=== PATIENT | female | born 1960 | race Caucasian/White ===

== ENCOUNTER 2018-01-27 12:41 | Outpatient (CLI) | payer OTHER ==
--- NOTE | 2018-02-02 15:42 | Mammography Report ---
DIGITAL SCREENING MAMMOGRAM: 01/27/2018 CLINICAL INDICATION: A 57-year-old for screening. COMPARISON: Films from [place], [place] dated 08/15/2009. TECHNIQUE: Routine CC and MLO projections were obtained of the breasts. FINDINGS: The breasts demonstrate scattered fibroglandular densities bilaterally. Coarse, typically benign calcifications are present. No suspicious masses, clustered microcalcifications, or regions of architectural distortion are identified. IMPRESSION: BENIGN FINDINGS. RECOMMENDATION: Routine annual screening unless otherwise clinically indicated. BIRADS CATEGORY 2 - BENIGN FINDINGS. STANDARD QUALIFYING STATEMENTS: 1. This examination was reviewed with the aid of Computer-Aided Detection (CAD). 2. A negative or benign imaging report should not delay biopsy if clinically suspicious findings are present. Consider surgical consultation if warranted. More than 5% of cancers are not identified by imaging. 3. Dense breasts may obscure an underlying neoplasm. TD: 02/02/2018 15:40
== END 2018-01-27 12:42 | disposition home or self-care (01) ==
LOC: DI 12:41
PROVIDERS: ATTEND Physician Assistant
DX: Z12.31 Encounter for screening mammogram for malignant neoplasm of breast (principal)
CPT/HCPCS: 77067

== ENCOUNTER 2019-01-23 19:14 | Inpatient (IN) | payer OTHER ==
--- NOTE | 2019-01-23 20:07 | ED Physician Documentation ---
PD HPI ABD PAIN - Stated complaint Stated Complaint: RT ABD PX/BLOATING - Chief complaint Chief Complaint: Abd Pain - History obtained from History obtained from: Patient, Family - History of Present Illness Timing - onset: How many days ago (3) Timing - duration: Days (3) Timing - details: Gradual onset, Still present Quality: Aching, Sharp, Pain Location: RUQ Radiation: Upper back Improved by: Laying still Worsened by: Moving, Breathing, Position, Palpation Associated symptoms: Nausea. No: Fever, Vomiting Similar symptoms before: Has not had sx before Recently seen: Not recently seen - Additional information Additional information: Previously well 58-year-old female with a history of celiac disease has developed bloating followed by right upper quadrant abdominal pain for the past 3 days. She has been afraid to eat and has not eaten and she is only drinking fluids. She has not had vomiting with this. She has had a bowel movement and this was normal. In 2009 the patient did have CT scan of the abdomen pelvis demonstrating what looks like a potential colon cancer in the distal cecum. She had follow-up colonoscopy. Review of Systems Constitutional: reports: Myalgias, Fatigue. denies: Fever Eyes: denies: Decreased vision Ears: denies: Ear pain Nose: denies: Rhinorrhea / runny nose, Congestion Throat: denies: Sore throat Cardiac: denies: Chest pain / pressure, Palpitations Respiratory: denies: Dyspnea, Cough GI: reports: Abdominal Pain, Abdominal Swelling, Nausea. denies: Vomiting, Constipation, Diarrhea : denies: Dysuria, Frequency Skin: denies: Rash Musculoskeletal: reports: Back pain. denies: Neck pain Neurologic: reports: Generalized weakness. denies: Focal weakness, Numbness PD PAST MEDICAL HISTORY - Present Medications Home Medications: Ambulatory Orders Medication Instructions Recorded Confirmed Oxycodone HCl/Acetaminophen 1 each PO BID 01/23/19 01/23/19 [Oxycodone-Acetaminophen 10-325] RX: Atorvastatin [Lipitor] 1 tab PO DAILY 01/23/19 01/23/19 RX: Metoprolol Succinate 50 mg PO DAILY 01/23/19 01/23/19 clonazePAM [Clonazepam] 1 mg PO BID 01/23/19 01/23/19 - Allergies Allergies/Adverse Reactions: Allergies Allergy/AdvReac Type Severity Reaction Status Date / Time acetaminophen [From Tylenol] Allergy Rash Verified 01/23/19 19:26 meperidine [From Demerol] Allergy Rash Verified 01/23/19 19:25 PD ED PE NORMAL - Vitals Vital signs reviewed: Yes (tachy and hypertensive) - General General: Alert and oriented X 3, Well developed/nourished, Other (parched mucous membranes causes some dysarthria. The patient moves slowly and appears ill. She requres assistance to sit up in bed. ) - HEENT HEENT: Atraumatic, PERRL, EOMI, Other (super dry mucous membranes .) - Neck Neck: Supple, no meningeal sign, No bony TTP - Cardiac Cardiac: No murmur, Other (tachy to 120) - Respiratory Respiratory: No respiratory distress, Clear bilaterally - Abdomen Abdomen: Soft, Other (RUQ tenderness with arrest of respiration with palpation of the RUQ. 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 ) Eye Opening: Spontaneous Motor: Obeys Commands Verbal: Oriented GCS Score: 15 - Psych Psych: Other (mood is withdrawn and affect is flat ) Results - Vitals Vitals: Vital Signs - 24 hr 01/23/19 01/23/19 01/23/19 19:22 21:47 21:56 Temperature 36.1 C L 36.4 C L 36.9 C Heart Rate 127 H 108 H 106 H Respiratory 20 16 18 Rate Blood Pressure 147/93 H 151/102 H 141/96 H O2 Saturation 96 94 95 01/23/19 01/24/19 01/24/19 23:12 00:07 02:08 Temperature 36.6 C 36.7 C Heart Rate 105 H 100 100 Respiratory 16 16 16 Rate Blood Pressure 129/87 H 128/82 H 137/82 H O2 Saturation 95 96 97 Oxygen O2 Source Nasal cannula - Labs Labs: Laboratory Tests 01/23/19 01/23/19 01/23/19 20:20 20:20 20:55 WBC 20.0 H RBC 5.93 H Hgb 15.8 Hct 48.1 H MCV 81.2 MCH 26.6 L MCHC 32.7 RDW 14.5 Plt Count 275 MPV 7.0 L Neut # (Auto) 16.8 H Lymph # (Auto) 1.4 L Mcintosh # (Auto) 1.7 H Eos # (Auto) 0.0 Baso # (Auto) 0.1 Absolute Nucleated RBC 0.03 Nucleated RBC % 0.1 Sodium 131 L Potassium 3.5 Chloride 95 L Carbon Dioxide 24 Anion Gap 12.0 BUN 17 Creatinine 0.6 Estimated GFR (MDRD) 102 Glucose 168 H Lactic Acid 1.9 Calcium 8.8 Total Bilirubin 0.8 AST 20 ALT 18 Alkaline Phosphatase 114 Total Protein 7.6 Albumin 3.6 Globulin 4.0 Albumin/Globulin Ratio 0.9 L Lipase 22 - Rads (name of study) u/s abd lmt Radiology: Prelim report reviewed (Impression: 1. Findings suggestive of acute cholecystitis. 2. Pancreas and liver are poorly visualized due to the patient's body habitus.), EMP read indepedently, See rad report Procedures - Bedside sono Bedside sono by EMP: Examination of the right upper quadrant with bedside ultrasound reveals a swollen tender gallbladder without obvious stone there is gallbladder wall thickening of 0.88 cm and there is fluid surrounding the gallbladder. Exam consistent with acute cholecystitis. - IVC sono (time) 2019 Bedside IVC sono: IVC measures (cm) (0.94), Dehydration (est 1 + liter deficit.) PD MEDICAL DECISION MAKING - ED course Complexity details: reviewed old records, reviewed results, re-evaluated yarely he, considered differential, d/w patient, d/w family ED course: 58-year-old female with right upper quadrant pain for 3 days has a swollen tender gallbladder with findings consistent with acute cholecystitis with an elevated white blood cell count and dehydration. She is administered intravenous saline, Zosyn, Toradol and Dilaudid. The surgeon is consulted shortly after patient's arrival. Departure - Departure Disposition: ED Place in Observation Clinical Impression: Cholecystitis
[2019-01-23] MEDS ORDERED: KETOROLAC 30 MG/ML VIAL IVP STA (20:18)
[2019-01-23] MEDS ORDERED: PIPERACILLIN/TAZOBACTAM 3.375 GM in SODIUM CHLORIDE 0.9% MINIBAG 100 ML IV STA (20:18)
[2019-01-23] MEDS ORDERED: ONDANSETRON 4 MG/2 ML VIAL IVP STA (20:18)
[2019-01-23] MEDS ORDERED: SODIUM CHLORIDE 0.9% 1,000 ML IV ONE ×2 (20:18→23:36)
[2019-01-23 20:51] LABS: ALBUMIN 3.6 g/dL (3.2-5.5); ALBUMIN/GLOBULIN RATIO 0.9 (1.0-2.2); BILIRUBIN,TOTAL 0.8 mg/dL (0.2-1.0); CALCIUM 8.8 mg/dL (8.5-10.3); CREATININE 0.6 mg/dL (0.4-1.0); TOTAL PROTEIN 7.6 g/dL (6.7-8.2)
[2019-01-23 21:03] LABS: BASOPHILS # (AUTO) 0.1 10^3/uL (0.0-0.1); BASOPHILS % (AUTO) 0.4 %; HGB - HEMOGLOBIN 15.8 g/dL (12.0-16.0); LYMPHOCYTES # (AUTO) 1.4 10^3/uL (1.5-3.5); LYMPHOCYTES % (AUTO) 6.9 %; MEAN CORPUSCULAR HEMOGLOBIN 26.6 pg (27.0-31.0); MEAN CORPUSCULAR HGB CONC 32.7 g/dL (32.0-36.0); MEAN CORPUSCULAR VOLUME 81.2 fL (81.0-99.0); MONOCYTES # (AUTO) 1.7 10^3/uL (0.0-1.0); MONOCYTES % (AUTO) 8.5 %; NEUTROPHILS # (AUTO) 16.8 10^3/uL (1.5-6.6); NEUTROPHILS % (AUTO) 84.2 %; PLT - PLATELET COUNT 275 10^3/uL (130-450); RED BLOOD COUNT 5.93 10^6/uL (4.20-5.40); RED CELL DISTRIBUTION WIDTH 14.5 % (12.0-15.0)
--- NOTE | 2019-01-23 22:11 | Ultrasound Report ---
Reason: RUQ pain Procedure Date: 01/23/2019 Accession Number: [id number] / [id number] Procedure: US - Abdomen Limited CPT Code: FULL RESULT: EXAM: ABDOMEN ULTRASOUND LIMITED, RIGHT UPPER QUADRANT. EXAM DATE: 01/23/2019 09:53 PM. CLINICAL HISTORY: Right upper quadrant pain. COMPARISON: None. TECHNIQUE: Real-time scanning was performed with static images obtained. FINDINGS: Skin is of limited quality due to the patient's body habitus. Liver: Normal in size and echotexture. 17.1 cm. Main portal vein flow: Hepatopetal. Gallbladder: There are multiple small calculi in the gallbladder, which also contains sludge. Calculi are predominantly adjacent to the neck and do not appear mobile. The gallbladder wall appears hypoechogenic and measures 6.3 mm. Biliary System: CBD measures 5.4 mm. The CBD is only partially visualized. Other: Right kidney: 12.4 cm. No significant abnormality. IMPRESSION: 1. Findings suggestive of acute cholecystitis. 2. Pancreas and liver are poorly visualized due to the patient's body habitus. RADIA
[2019-01-23] MEDS ORDERED: HYDROmorphone 1 MG/ML CARPUJECT IVP STA (22:12)
--- NOTE | 2019-01-23 23:15 | CONSULTATION NOTE ---
Referring Provider Name of Referring Provider:: Dr. Ezequiel De Leon Consult Date: 01/23/19 Chief Complaint - Chief Complaint Chief Complaint: RUQ abdominal pain History of Present Illness - Admitted From Admitted From:: Outpatient - History Obtained From Records Reviewed: Yes History obtained from: Patient, chart and Dr. De Leon Exam Limitations: None - History of Present Illness HPI Comment/Other: Dr. Ezequiel De Leon asked that I consult on this veyr pleasant 58 year old female who started experiencing postprandial RUQ pain starting . The pain is d escribed as sharp and located in the RUQ quadrant. She stuck her finger down her throat to "get rid of the gas" but there was no nausea and no vomiting. Lying down she feels less pain but motion and standing exacerbates her pain. There is no diarrhea or constipation. She denies melena, hematochezia or hematemesis. There has been no unexpected weight loss. History - Past Medical History Cardiovascular: reports: Hypertension, High cholesterol MRSA Hx?: No Meds/Allgy - Home Medications Home Medications: Ambulatory Orders Medication Instructions Recorded Confirmed Atorvastatin [Lipitor] 1 tab PO DAILY 01/23/19 01/23/19 Metoprolol Succinate 50 mg PO DAILY 01/23/19 01/23/19 Oxycodone HCl/Acetaminophen 1 each PO BID 01/23/19 01/23/19 [Oxycodone-Acetaminophen 10-325] clonazePAM [Clonazepam] 1 mg PO BID 01/23/19 01/23/19 - Allergies Allergies/Adverse Reactions: Allergies Allergy/AdvReac Type Severity Reaction Status Date / Time acetaminophen [From Tylenol] Allergy Rash Verified 01/23/19 19:26 meperidine [From Demerol] Allergy Rash Verified 01/23/19 19:25 Review of Systems - Constitutional Constitutional: reports: Fatigue. denies: Fever, Chills - Eyes Eyes: denies: Pain - Ears, Nose & Throat Ears, Nose & Throat: denies: Ear pain - Cardiovascular Cariovascular: denies: Irregular heart rate - Respiratory Respiratory: denies: Cough, Sputum production - Gastrointestinal Gastrointestinal: reports: Abdominal pain (Patient has been told that she has IBS and celiac disease (but upon my questioning it is unclear if the proper testing was done).), Poor appetite. denies: Constipation, Diarrhea, Rectal bleeding, Black stools, Bloody stools, Nausea, Vomiting - Genitourinary Genitourinary: denies: Dysuria - Musculoskeletal Musculoskeletal: reports: Muscle pain (Chronic.), Back pain (Chronic.) - Neurological Neurological: reports: General weakness (Walks with the aid of a cane.) - Hematologic/Lymphatic Hematologic/Lymphatic: denies: Anemia, Bruising Exam - Vital Signs Reviewed Vital Signs: Yes Vital Signs: Vital Signs x48h Temp Pulse Resp BP Pulse Ox 01/23/19 23:12 105 H 16 129/87 H 95 01/23/19 21:56 36.9 C 106 H 18 141/96 H 95 01/23/19 21:47 36.4 C L 108 H 16 151/102 H 94 01/23/19 19:22 36.1 C L 127 H 20 147/93 H 96 - Physical Exam General Appearance: positive: No acute distress Eyes Bilateral: positive: No lid inflammation, Conjunctivae nml, No scleral icterus ENT: positive: Dry mucous membranes Neck: positive: Trachea midline Respiratory: positive: Chest non-tender, No respiratory distress, Breath sounds nml Cardiovascular: positive: No murmur, Tachycardia Abdomen: positive: Nml bowel sounds, Tenderness (In the right upper quadrant.), Guarding (RUQ) Skin: positive: Color nml Extremities: positive: Non-tender Neurologic/Psychiatric: positive: Oriented x3, Motor nml, Sensation nml, Mood/affect nml Conclusion/Plan - Diagnosis Diagnosis: Acute cholecystitis - Plan Plan: Laparoscopic cholecystectomy, possible open cholecystectomy, possible intraoperative cholangiogran, possible common bile duct exploration. The indications, procedure, alternatives including no surgery, ingestion of Actigall, possible risks including infection (deep or superficial), bleeding requiring transfusion (with all of its risks), common bile duct injury requring repair and additional surgery, and were fully explained to the patient and all questions answered. I also explained the pathophysiology. I explained that following the surgery I did not want her lifting anything over 15 pounds for 6 weeks to allow for optimal healing and to decrease the likelihood that a hernia would occur. All questions were fully answered. Verbal and written consent was obtained. The patient, in preparation for surgery will be nothing by mouth, and receive 2 gm of Cephalexin with induction. I asked her to contact me with any surgical questions and her concerns and she stated that she would. I asked her to let me know if there is any way we can make her stay at [facility] more comfortable and she stated that she would let me know. The plan is to do this operation as an outpatient procedure and to discharge her home following the procedure. 45 minutes of [id number] time spent with the patient, the majority of which was spent in discussion, coordination of care, and completion of the requisite paperwork Dragon disclaimer: This document was created in part using voice recognition technology. Because of the inherent limitations of the system ([employer]'s [employer] user manual states that the licensee understands that speech recognition is a statistical process and that recognition errors are inherent in the process), occasional same sounding word substitutions and grammatical errors do occur and persist despite proofreading. Please read this document for context. - Lab Results Lab results reviewed: Yes Fish Bones: 01/23/19 20:55 01/23/19 20:20 - Diagnostic Imaging Results Diagnostic Imaging Results: positive: Final report reviewed
[2019-01-24] MEDS ORDERED: HYDROmorphone 1 MG/ML CARPUJECT IVP STA ×3 (04:04→09:37)
[2019-01-24] MEDS ORDERED: ONDANSETRON 4 MG/2 ML VIAL IVP STA (04:04)
[2019-01-24 04:36] LABS: BILIRUBIN,URINE NEGATIVE (NEGATIVE); GLUCOSE, URINE (UA) NEGATIVE (NEGATIVE); KETONES,URINE (UA) NEGATIVE (NEGATIVE); LEUKOCYTE ESTERASE, URINE TRACE (NEGATIVE); NITRITE,URINE NEGATIVE (NEGATIVE); OCCULT BLOOD,URINE LARGE (NEGATIVE); PROTEIN,URINE TRACE mg/dL (NEGATIVE); UROBILINOGEN,URINE 0.2 (NORMAL) E.U./dL (NORMAL)
[2019-01-24 04:45] LABS: CLARITY,URINE CLEAR (CLEAR)
[2019-01-24 04:46] LABS: BACTERIA,URINE Few /HPF (None Seen); SQUAMOUS EPITHELIAL CELL,UR FEW Squamous (<= Few)
[2019-01-24] MEDS ORDERED: KETOROLAC 30 MG/ML VIAL IVP STA (05:02)
[2019-01-24] MEDS ORDERED: HYDROmorphone 1 MG/ML CARPUJECT ONE (06:30)
[2019-01-24] MEDS ORDERED: BUPIVACAINE 0.5% PF 30 ML VIAL ONE (07:23)
--- NOTE | 2019-01-24 09:55 | ANESTHESIA ---
Pre-Anesthesia VS, & Labs - Diagnosis Diagnosis Acute cholecystitis - Procedure laparoscopic cholecystectomy, possible open, possible intraoperative cholangiogram Vital Signs: Temp Pulse Resp BP Pulse Ox 36.7 C 117 H 18 139/81 H 95 01/24/19 02:08 01/24/19 09:37 01/24/19 09:37 01/24/19 09:37 01/24/19 09:37 Height 5 ft 5 in Weight (kg) 75.75 kg Body Mass Index 27.8 - NPO >8 hours - Is Patient ?: No - Lab Results Current Lab Results: Laboratory Tests 01/23/19 20:55: WBC 20.0 H, RBC 5.93 H, Hgb 15.8, Hct 48.1 H, MCV 81.2, MCH 26.6 L, MCHC 32.7, RDW 14.5, Plt Count 275, MPV 7.0 L, Neut # (Auto) 16.8 H, Lymph # (Auto) 1.4 L, Slope # (Auto) 1.7 H, Eos # (Auto) 0.0, Baso # (Auto) 0.1, Absolute Nucleated RBC 0.03, Nucleated RBC % 0.1 01/23/19 20:20: Lactic Acid 1.9 01/23/19 20:20: Sodium 131 L, Potassium 3.5, Chloride 95 L, Carbon Dioxide 24, Anion Gap 12.0, BUN 17, Creatinine 0.6, Estimated GFR (MDRD) 102, Glucose 168 H, Calcium 8.8, Total Bilirubin 0.8, AST 20, ALT 18, Alkaline Phosphatase 114, Total Protein 7.6, Albumin 3.6, Globulin 4.0, Albumin/Globulin Ratio 0.9 L, Lipase 22 Fish Bones: 01/23/19 20:55 01/23/19 20:20 Home Medications and Allergies Home Medications: Ambulatory Orders Atorvastatin [Lipitor] 1 tab PO DAILY 01/23/19 Metoprolol Succinate 50 mg PO DAILY 01/23/19 Oxycodone HCl/Acetaminophen [Oxycodone-Acetaminophen 10-325] 1 each PO BID 01/23/19 clonazePAM [Clonazepam] 1 mg PO BID 01/23/19 Atorvastatin [Lipitor] 1 tab PO DAILY 01/23/19 Metoprolol Succinate 50 mg PO DAILY 01/23/19 Oxycodone HCl/Acetaminophen [Oxycodone-Acetaminophen 10-325] 1 each PO BID 01/23/19 clonazePAM [Clonazepam] 1 mg PO BID 01/23/19 Allergies/Adverse Reactions: Allergies Allergy/AdvReac Type Severity Reaction Status Date / Time acetaminophen [From Tylenol] Allergy Rash Verified 01/23/19 19:26 meperidine [From Demerol] Allergy Rash Verified 01/23/19 19:25 Anes History & Medical History - Anesthetic History Anesthesia Complications: reports: No previous complications - Medical History Cardiovascular: reports: Hypertension, High cholesterol Pulmonary: reports: None Gastrointestinal: reports: Cholelithiasis Urinary: reports: Kidney stones Neuro: reports: Head injury (history of), Migraines Musculoskeletal: reports: Osteoarthritis, Fibromyalgia, Chronic back pain Smoking Status: Current every day smoker Exam General: Alert, Oriented x3 Mouth Opening: Greater than 4 Fingerbreadths Neck Mobility: Limited Mallampati classification: III Thyromental Distance: greater than 6 cm Respiratory: Lungs clear Cardiovascular: Regular rate Plan Anesthesia Type: General Consent for Procedure(s) Verified and Reviewed: Yes Code Status: Attempt Resuscitation ASA classification: 2-Mild systemic disease Is this case an emergency?: Yes
[2019-01-24] MEDS ORDERED: BUPIVACAINE 0.5% PF 30 ML VIAL SUBQ ONE ×2 (10:44→12:57)
--- NOTE | 2019-01-24 10:46 | MISCELLANEOUS PROVIDER NOTE ---
Miscellaneous Provider Note - - Note: This very pleasant 4-year-old female was seen last night in the emergency department for acute cholecystitis and she spent the night in the emergency department with the anticipation that she would be operated on today. From the time that she was seen in the emergency department until now the only difference is been that she has been moved from room 4 to room 7, given some blankets, 1 dose of Dilaudid, and allowed to sleep. Subjectively she states that she still has the pain but it is better than it was previously. Objectively she is still mildly tachycardic, her lungs sound clear, she had still has pain on palpation in the right upper quadrant with normal active bowel sounds and no peritoneal findings. The assessment and plan have not changed. She is scheduled to have a laparoscopic cholecystectomy, possible open cholecystectomy, possible intraoperative cholangiogram, possible common bile duct exploration this morning. The patient has no additional questions. She has not developed any new symptoms. There are no new medications or allergies that she has tam mbered. Davidon disclaimer: This document was created in part using voice recognition technology. Because of the inherent limitations of the system ([employer] user manual states that the licensee understands that speech recognition is a statistical process and that recognition errors are inherent in the process), occasional same sounding word substitutions and grammatical errors do occur and persist despite proofreading. Please read this document for context.
[2019-01-24] MEDS ORDERED: LACTATED RINGERS 1,000 ML IV ONE ×3 (11:09→12:37)
[2019-01-24] MEDS ORDERED: NITROGLYCERIN 2% PASTE TOP ONE (12:38)
[2019-01-24] MEDS ORDERED: ROCURONIUM 50 MG/5 ML VIAL IVP ONE (13:00)
[2019-01-24] MEDS ORDERED: DEXAMETHASONE 4 MG/ML VIAL IVP ONE (13:00)
[2019-01-24] MEDS ORDERED: ONDANSETRON 4 MG/2 ML VIAL IVP ONE (13:00)
[2019-01-24] MEDS ORDERED: MIDAZOLAM 2 MG/2 ML VIAL IVP ONE (13:00)
[2019-01-24] MEDS ORDERED: fentaNYL 100 MCG/2 ML VIAL IVP ONE (13:00)
[2019-01-24] MEDS ORDERED: NEOSTIGMINE 1 MG/1 ML 10 ML MDV IVP ONE (13:00)
[2019-01-24] MEDS ORDERED: LIDOCAINE-MPF 2% 5 ML VIAL IM ONE (13:00)
[2019-01-24] MEDS ORDERED: GLYCOPYRROLATE 1 MG/5 ML VIAL IVP ONE (13:00)
[2019-01-24] MEDS ORDERED: MORPHINE 10 MG/ML VIAL IVP ONE (13:00)
[2019-01-24] MEDS ORDERED: PROPOFOL 200 MG/20 ML VIAL IVP ONE (13:00)
--- NOTE | 2019-01-24 13:15 | OPERATIVE REPORT ---
Operative Report - General Admit Date: 01/24/19 Planned Procedure: Laparoscopic cholecystectomy, possible open cholecystectomy, possible intraoperative cholangiogram, possible common bile duct exploration Pre-Op Diagnosis: Acute cholecystitis Procedure Performed: Laparoscopic cholecystectomy, umbilical herniorrhaphy Modifier 22 should be appended Post Op Diagnosis: Gangrenous cholecystitis and small umbilical hernia - Procedure Note Primary Surgeon: Ezequiel Pederson MD Anesthesia Provider: Dutch Vasquez CRNA Anesthesia Technique: General ET tube, Local (30 mL of half percent Marcaine) IV Fluids (mL): 2,200 Estimated Blood Loss (mL): 400 Drain/Tube Type: Other (None.) Complications: The patient did have some cardiac changes during the operation including ST depression as well as loss of the P wave. This resolved at the conclusion of the operation. - Other Other Information/Narrative: OPERATIVE DESCRIPTION/REPORT: After verbal and written informed consent was obtained detailing the risks of infection, bleeding requiring transfusion with its risks, common bile duct injury, and , and after I met with the patient confirming the surgery, the patient was brought to the operative suite and placed supine on the operating table. Great care was taken to avoid pressure points to prevent pressure necrosis or nerve injury. Monitoring devices were applied along with TEDs and pneumatic compressive stockings (to prevent DVT). The patient received preoperative antibiotics for surgical prophylaxis. Dutch Vasquez CRNA sedated and anethetized the patient for the entire procedure. The patient was prepped and draped in the usual sterile manner. A "time in" then confirmed that the patient was identified with 3 identifiers (name, date and medical record number), the history and physical was in the chart, the signed consent confirming the procedure was in the chart, the patient was in the correct position, the aforementioned prophylactic measures were in place or given, we had the correct personnel and equipment to complete the procedure and that anesthesia, surgery and nursing were given an opportunity to express any concerns. With the agreement of everyone in the room, we proceeded with the operation. The initial incision was at the umbilicus and dissection to a small umbilical hernia was completed using blunt dissection. The fascia on either side was grasped with a Héctor the peritoneum was grasped and incised using Metzenbaum scissors. In this location, a 12 mm blunt tipped, balloon tipped port was placed and the balloon was inflated to keep the port in position. The abdominal cavity was insufflated with carbon dioxide to steady-state pressure of 15 mmHg. Three additional 5 mm ports were placed in standard location for laparoscopic cholecystectomy (subxiphoid and 2 right subcostal) under direct vision of the 30 degree laparoscope and without incident. The patient was then placed in reverse Trendelenburg position and was rotated slightly to their left. Immediately noted was fluid that was dark in color above the liver as well the omentum densely adherent to the underside of the liver. The omentum was pulled up off the underside of the liver and gallbladder. The reaction of the omentum was that of a dense inflammatory reaction. The gallbladder itself was friable and the wall was necrotic consistent with gangrenous cholecystitis. The gallbladder was tense and the wall was necrotic so there was no way that I would be able to grasp this gallbladder without decompressing it first. The gallbladder was decompressed using a laparoscopic needle and 60 cc syringe. 180 cc of dark bile was removed. Even with the removal resulting in a flaccid gallbladder it was difficult to grasp the wall due to the thick necrotic nature of the wall. Along the right side of the gallbladder an omental attachment was taken down and a small arterial bleeder was exposed. This was difficult to control due to its location in the fat as well as the fact that the bleeding was pointed at the scope and occluding the vision of the scope. Eventually clips controlled this omental bleeder, but not before there was significant blood loss. The gallbladder fundus was grasped with an atraumatic grasper. Additional adhesions had to be taken down by blunt and sharp dissection along with electrocautery. Eventually, we identified the infundibulum, and this was then grasped and retracted inferior and laterally. Again, this was exceedingly difficult due to the necrotic nature of the gallbladder wall. Dissection planes were not readily visible. Dissection was then begun in the angle of Calot. The cystic duct and (slightly medially and posteriorly) cystic artery were identified. The critical view was obtained. Two clips proximally and one clip distally were used to control both the cystic duct and cystic artery. The clips were carefully placed to avoid occluding the juncture with the common bile duct. Both the cystic duct and then the cystic artery were then transected with laparoscopic alexandra. The gallbladder was then removed from its fossa in a retrograde fashion using electrocautery. Retraction of the gallbladder resulted more evulsion of the gallbladder from the liver bed rather than dissection in any clearly identifiable plane. Prior to complete removal of the gallbladder from the liver bed the liver bed was cauterized using Bovie electrocautery with hemostasis the result. With the 30 degree 5 mm scope in the subxiphoid position, the gallbladder was placed in an EndoCatch bag to be extracted through the 12 mm port site. I irrigated the right upper quadrant with 3 liters of warm sterile saline, and the area was aspirated dry. I inspected the gallbladder fossa and there was no bleeding or bile leak. Clips on the cystic duct and cystic artery appeared to be secure. I briefly visually explored the abdomen. There was no other evidence of overt pathology. I injected the port sites at the peritoneal, fascial, and skin levels under direct vision with 0.5% Marcaine. All ports and the EndoCatch containing the gallbladder were removed. Following gallbladder removal, the remaining carbon dioxide was expelled from the abdomen. The fascia at the umbilicus was reapproximated using 2 [id number] 0 Vicryl sutures thus repairing the umbilical hernia. The skin at each port site was approximated using a subcuticular 4-0 Monocryl. The surgical count of instruments, needles and sponges was reported as correct twice. Mastisol, Steri-Strips and sterile surgical dressings were applied. The patient was then awakened from anesthesia, extubated, and having tolerated the procedure well, was transported to the recovery room. No complications were encountered. A "time out" confirmed the operation performed, the fluids given, the estimated blood loss and anesthesia, surgery and nursing were given an opportunity to express any concerns. At the completion of the case an ECG was obtained and is made aware that there were changes to the ECG that were not present preoperatively. Due to these concerns as well as the operative findings and the operative course the patient was placed in the intensive care unit prophylactically. Due to the complexity of the case, the gangrenous nature of the gallbladder, the blood loss, the ECG changes and the length of the case a modifier 22 should be appended. Dragon disclaimer: This document was created in part using voice recognition technology. Because of the inherent limitations of the system ([employer] user manual states that the licensee understands that speech recognition is a statistical process and that recognition errors are inherent in the process), occasional same sounding word substitutions and grammatical errors do occur and persist despite proofreading. Please read this document for context.
[2019-01-24] MEDS ORDERED: SODIUM CHLORIDE FLUSH 0.9% 10 ML SYRINGE IVP PRN (13:18)
[2019-01-24] MEDS ORDERED: ONDANSETRON 4 MG/2 ML VIAL IVP PRN (13:18)
[2019-01-24] MEDS ORDERED: HYDROmorphone 0.5 MG/0.5 ML SYRINGE ONE (13:44)
[2019-01-24] MEDS ORDERED: NITROGLYCERIN 2% PASTE TOP STA (13:59)
[2019-01-24 14:16] LABS: BASOPHILS # (AUTO) 0.1 10^3/uL (0.0-0.1); BASOPHILS % (AUTO) 0.4 %; HGB - HEMOGLOBIN 13.3 g/dL (12.0-16.0); LYMPHOCYTES # (AUTO) 0.7 10^3/uL (1.5-3.5); LYMPHOCYTES % (AUTO) 4.5 %; MEAN CORPUSCULAR HEMOGLOBIN 26.4 pg (27.0-31.0); MEAN CORPUSCULAR HGB CONC 32.3 g/dL (32.0-36.0); MEAN CORPUSCULAR VOLUME 81.6 fL (81.0-99.0); MONOCYTES # (AUTO) 1.2 10^3/uL (0.0-1.0); MONOCYTES % (AUTO) 7.3 %; NEUTROPHILS # (AUTO) 13.9 10^3/uL (1.5-6.6); NEUTROPHILS % (AUTO) 87.8 %; PLT - PLATELET COUNT 250 10^3/uL (130-450); RED BLOOD COUNT 5.06 10^6/uL (4.20-5.40); RED CELL DISTRIBUTION WIDTH 14.3 % (12.0-15.0); WHITE BLOOD COUNT 15.9 x10^3/uL (4.8-10.8)
[2019-01-24 14:27] LABS: ALBUMIN 2.5 g/dL (3.2-5.5); ALBUMIN/GLOBULIN RATIO 0.9 (1.0-2.2); BILIRUBIN,TOTAL 1.3 mg/dL (0.2-1.0); CALCIUM 7.7 mg/dL (8.5-10.3); CREATININE 0.6 mg/dL (0.4-1.0); TOTAL PROTEIN 5.3 g/dL (6.7-8.2)
--- NOTE | 2019-01-24 14:42 | MISCELLANEOUS PROVIDER NOTE ---
Miscellaneous Provider Note - - Note: This note is to serve as a review of the patient's care up to this point. The patient is immediately postoperative following a laparoscopic cholecystectomy for gangrenous cholecystitis and an incidental umbilical herniorrhaphy. Due to the gangrenous nature of the gallbladder and needed to be decompressed and the wall of the gallbladder was clearly necrotic. Dissection of this necrotic and densely adherent gallbladder resulted in blood loss which was controlled. During the operation on the rhythm strip the patient showed changes in her cardiac rhythm and tracing. This resolved by the end of the case but prudence led us to obtain a an EKG which showed some persistent changes from preoperatively. As a result I consulted Dr. Mack, ordered troponins, ordered a chest x-ray, order an echocardiogram and placed 1 inch of Nitropaste on the patient's chest as well as gave the patient morphine. Additionally, I was informed that the patient's blood cultures came back positive for gram- positive cocci. Due to the patient's gangrenous gallbladder, elevated white blood cell count, and positive blood cultures this mandates at least 3 days of IV antibiotics and possibly a longer oral course. Additionally, she will be followed to ensure that she does not have any ongoing blood loss. As a consequence of all the above prudence dictates a postoperative admission to the intensive care unit.
[2019-01-24] MEDS: DEXTROSE 5%-0.9% NACL 1,000 ML IV SCH (14:49)
[2019-01-24] MEDS: HYDROmorphone 0.5 MG/0.5 ML SYRINGE IVP PRN ×4 (15:14→23:09)
[2019-01-24] MEDS: PIPERACILLIN/TAZOBACTAM 3.375 GM in SODIUM CHLORIDE 0.9% MINIBAG 100 ML IV SCH ×2 (15:18→19:52)
--- NOTE | 2019-01-24 15:23 | XRAY Report ---
Reason: chest pain Procedure Date: 01/24/2019 Accession Number: [id number] / [id number] Procedure: XR - Chest 1 View X-Ray CPT Code: 99612 FULL RESULT: EXAM: CHEST RADIOGRAPHY, PORTABLE 1 VIEW EXAM DATE: 01/24/2019 02:44 PM. CLINICAL HISTORY: Chest pain in a 58-year-old female. COMPARISON: XR RIBS UNILAT W/ PA CHEST MIN 3 VIEWS 09/11/2010 5:44 AM. TECHNIQUE: 1429 hr AP semierect upright portable view. FINDINGS: Lungs/Pleura: Poor inspiratory effort. Patchy atelectasis left mid to lower lung. No definite infiltrates, effusions or pneumothorax bilaterally. Mediastinum: Heart size normal, without adenopathy or pulmonary vascular congestion. Other: Trachea is midline. Old healed fracture right mid clavicle with mild deformity, chronic and stable. Osseous structures otherwise unremarkable. IMPRESSION: Stable chest. No pneumonia, CHF or other demonstrated cause for chest pain. RADIA
[2019-01-24] MEDS: SODIUM CHLORIDE FLUSH 0.9% 10 ML SYRINGE IVP SCH (18:51)
[2019-01-24] MEDS ORDERED: SODIUM CHLORIDE 0.9% 500 ML IV ONE (19:30)
--- NOTE | 2019-01-24 20:23 | CONSULTATION NOTE ---
DATE OF SERVICE: 01/24/2019 Physician: Eva Mack MD HISTORY OF PRESENT ILLNESS: This is a 58-year-old white female with history of hypertension and palpitations for which she is on Metoprolol. She also has a history of chronic pain and is on a pain management protocol. She presented with a 2-day history of worsening right upper quadrant pain and then nausea and vomiting. She came to the emergency room yesterday and was found to have acute cholecystitis with elevated white count of 20. Imaging showed acute cholecystitis without stones. This morning, she was taken to the operating room for laparoscopic cholecystectomy. Dr. Ezequiel Pederson did the surgery and states that he found a gangrenous, black gallbladder, and there was a significant amount of blood loss of 400 mL during the procedure. During the procedure, the Anesthesiologist noted that her rhythm had changed and that there may have been new ST segment changes on telemetry. In the recovery room, she had a 12-lead EKG done, which showed an ectopic atrial rhythm and therefore the Hospitalist team is requested for consulting on the EKG abnormality. The patient denies to me any other past cardiac history besides HTN and palpitations. She did say that she has been short of breath for several days just prior to this admission, and this has had no workup. She denies chest pain ever. She has never had syncope. She has not had any cardiac work-up. ALLERGIES: TYLENOL AND MEPERIDINE. MEDICATIONS: Before this admission: 1. Clonazepam 1 mg p.o. b.i.d. 2. Tylenol with codeine, despite hsving a "Tylenol allergy". 3. Metoprolol succinate 50 mg daily. 4. Lipitor, unknown dose daily. 5. Unknown pain medications. SOCIAL HISTORY: The patient is a nonsmoker, who never smoked, drinks no alcohol, no illicit drug use history. FAMILY HISTORY: No inherited diseases. REVIEW OF SYSTEMS: A comprehensive review of system was performed and the pertinent positives are listed, the rest are negative. PHYSICAL EXAMINATION GENERAL: Middle-aged white female, mildly obese. She is not in distress after getting pain medications postop. VITAL SIGNS: Blood pressure 124/80, heart rate 110, in sinus rhythm now. Telemetry was reviewed, and she converted from ectopic atrial rhythm to a normal sinus rhythm at approximately 6 p.m. HEENT: Unremarkable. NECK: Without JVD or carotid bruits. LUNGS: Clear. HEART: Sounds normal. No murmur. No click. No gallop. ABDOMEN: Soft, mildly distended, nontender. Decreased bowel sounds. EXTREMITIES: No clubbing, cyanosis or edema. NEUROLOGIC: Grossly intact. LABORATORY DATA: Sodium 131 on admission yesterday, today 134. Otherwise, normal electrolytes. AST was 20, which increased to 68. ALT was 18, which increased to 52. Alkaline phosphatase was 114, which increased to 163. A troponin was done in the recovery room, which was 0.04. Lipase was normal on admission. White blood count 20 on admission, which decreased to 15.9, hemoglobin 15.8, decreased to 13.3, platelet count normal. No INR was done. Urinalysis showed large occult blood, trace leukocyte esterase, high white blood cells and few bacteria. Her blood culture just reported to be positive and is growing gram positive cocci. EKG: Ectopic atrial rhythm, borderline (0.5 mm) ST elevation in leads II, III and aVF. IMPRESSION/DIAGNOSES 1. Ectopic atrial rhythm, etiology is unclear, but may be related to the beta leo use or to an underlying dysrhythmia related to her "palpitation history." 2. Acute cholecystitis with a gangrenous gallbladder. 3. Gram-positive bacteremia. 4. Urinary tract infection. 5. History of back pain, on chronic pain meds. 6. History of hypertension. PLAN 1. Agree with ICU admission due to cardiac rhythm change and abnormal EKG. 2. Agree with broad-spectrum antibiotics to cover both GI organisms, UTI organisms and now the gram-positive bacteria that are growing from blood cultures. 3. Continue with advancing the diet and pain management per the surgeon. 4. Obtain troponin levels x3 every 6 hours. 5. Obtain EKG in the morning to look for any ischemic changes. 6. Obtain an Echo to evaluate for resting wall motion abnormalities, chamber sizes and PA pressure. 7. Obtain a TSH level to rule out hyper or hypothyroidism as the cause of this rhythm problem as well. 8. Check a magnesium level. 9. Continue with telemetry. 10. Obtain a chest XRay. DEEP VENOUS THROMBOSIS PROPHYLAXIS: DILCIA stockings (SCDs were tried, but are annoying to the patient because of the "constant movement"). CODE STATUS: FULL CODE. ATTESTATION: The patient is expected to be discharged or transferred to another facility within 96 hours: Yes. TD: 01/24/2019 19:40 JOSE ARMANDO
[2019-01-25] MEDS: SODIUM CHLORIDE FLUSH 0.9% 10 ML SYRINGE IVP SCH ×4 (01:31→23:43)
[2019-01-25] MEDS: HYDROmorphone 0.5 MG/0.5 ML SYRINGE IVP PRN ×6 (01:34→18:57)
[2019-01-25] MEDS: DEXTROSE 5%-0.9% NACL 1,000 ML IV SCH ×2 (01:34→12:34)
[2019-01-25] MEDS: PIPERACILLIN/TAZOBACTAM 3.375 GM in SODIUM CHLORIDE 0.9% MINIBAG 100 ML IV SCH ×4 (01:34→20:18)
[2019-01-25 05:05] LABS: BASOPHILS % (AUTO) 0.2 %; HGB - HEMOGLOBIN 11.6 g/dL (12.0-16.0); LYMPHOCYTES # (AUTO) 0.9 10^3/uL (1.5-3.5); LYMPHOCYTES % (AUTO) 6.3 %; MEAN CORPUSCULAR HEMOGLOBIN 26.9 pg (27.0-31.0); MEAN CORPUSCULAR HGB CONC 32.9 g/dL (32.0-36.0); MEAN CORPUSCULAR VOLUME 81.8 fL (81.0-99.0); MEAN PLATELET VOLUME 7.1 fL (7.9-10.8); MONOCYTES # (AUTO) 1.1 10^3/uL (0.0-1.0); MONOCYTES % (AUTO) 7.4 %; NEUTROPHILS # (AUTO) 12.9 10^3/uL (1.5-6.6); NEUTROPHILS % (AUTO) 86.1 %; PLT - PLATELET COUNT 277 10^3/uL (130-450); RED BLOOD COUNT 4.31 10^6/uL (4.20-5.40); RED CELL DISTRIBUTION WIDTH 14.3 % (12.0-15.0)
[2019-01-25 05:15] LABS: ALBUMIN 2.4 g/dL (3.2-5.5); ALBUMIN/GLOBULIN RATIO 0.8 (1.0-2.2); CALCIUM 7.3 mg/dL (8.5-10.3); CREATININE 0.5 mg/dL (0.4-1.0); MAGNESIUM 1.9 mg/dL (1.7-2.8); TOTAL PROTEIN 5.4 g/dL (6.7-8.2)
[2019-01-25] MEDS ORDERED: POTASSIUM CHLORIDE 20 MEQ TABLET PO SCH (08:25)
--- NOTE | 2019-01-25 08:25 | PROVIDER PROGRESS NOTE ---
Assessment/Plan - Problem List (1) Tachycardia Assessment/Plan: This is likely multi-factorial: from post-op pain and due to infection, blood loss, being off her B-leo for 2 days and from the (newly diagnosed) hyperthyroidism. Continue iv hydration, pain management, follow H/H and transfuse if she drops <7, and treat infection. Will also resume B-leo and manage the hyperthyroidism (see below). (2) Hyperthyroidism determined by thyroid function test Assessment/Plan: This may be the reason for her history of "pounding palpitations". Will resume her home B-leo dose of Toprol XL 50 mg po daily. Further management (thyroid imaging, choice of anti-thyroid med, radioiodine or surgery) should be done as an outpatient, after this infection clears and after she is adequately B-blocked. This was discussed with the patient and , at bedside. All questions were answered to their satisfaction. (3) Ectopic atrial rhythm Assessment/Plan: This resolved at 6 pm last night. This morning's EKG shows NSR. Troponin values were normal x3. Echo showed a normal LVEF. OK to move out of ICU to telemetry MedSur bed. Discussed with Dr Pederson. (4) Acute cholecystitis Assessment/Plan: Continue management per general surgery with pain meds and advancing diet. Continue empiric iv antibiotics to cover gram negatives and anaerobes. (5) Gram-positive bacteremia Assessment/Plan: Awaait identification. Continue Pip/Tazo, which covers gram positives. (6) UTI (urinary tract infection) Assessment/Plan: The Zosyn also covers potential UTI bacteria. (7) Hyponatremia Assessment/Plan: Probably from iv hydration and npo status. Continue saline iv as her diet is advanced. (8) Hypokalemia Assessment/Plan: Replace and monitor. (9) History of back pain Assessment/Plan: She again discussed the concern of being out of her Oxycodone when she gets home, since it was not prescribed at a Provider visit (with her pain management CHARGE AUDITOR, Og Schumacher) at the recent office visit, because the visit never took place, it was cancelled by the provider as she got there. She will need some pain meds at [facility] anyway, I discussed with her. (10) Hx of essential hypertension Assessment/Plan: Metoprolol to be restarted today. - Current Meds Current Meds: Current Medications Generic Name Dose Route Start Last Admin Trade Name Kb PRN Reason Stop Dose Admin Hydromorphone HCl 1 mg 01/24/19 22:47 01/25/19 04:45 Dilaudid Inj Syringe IVP 1 mg Q2H PRN Administration Severe Pain Dextrose/Sodium Chloride 1,000 mls @ 100 mls/hr 01/24/19 14:00 01/25/19 01:34 D5ns IV 100 mls/hr .Q10H RUDOLPH Administration Piperacillin Sod/Tazobactam 100 mls @ 200 mls/hr 01/24/19 14:00 01/25/19 02:05 Sod 3.375 gm/ Sodium Chloride IV 01/27/19 23:59 Infused Q6H RUDOLPH Infusion Sodium Chloride 10 ml 01/24/19 17:00 01/25/19 01:31 Normal Saline Flush 0.9% IVP Not Given 0100,0900,1700 RUDOLPH - Lab Result Fish Bone Diagrams: 01/25/19 04:30 01/25/19 04:30 - Additional Planning My Orders: My Active Orders 01/24/19 15:15 Telemetry- [RC] Q4HR 01/25/19 08:00 EKG - Electrocardiogram [RC] .ONCE 01/25/19 09:00 Metoprolol Succinate [Toprol Xl] 50 mg PO DAILY clonazePAM [Clonazepam] 1 mg PO BID Subjective - Subjective Patient Reports: Feeling Better, Resting Comfortably Objective Vital Signs: Vital Signs - 24 hr 01/24/19 01/24/19 01/24/19 09:37 11:00 13:13 Temperature 37.1 C 36.4 C L Heart Rate 117 H 114 H 95 Heart Rate [ Monitoring electrodes] Respiratory 18 20 16 Rate Blood Pressure 139/81 H 109/76 133/75 H Blood Pressure [Left Brachial artery] Blood Pressure [Left Radial artery] O2 Saturation 95 97 98 01/24/19 01/24/19 01/24/19 13:16 13:22 13:25 Temperature 36.4 C L 36.4 C L 36.4 C L Heart Rate 94 95 95 Heart Rate [ Monitoring electrodes] Respiratory 16 16 16 Rate Blood Pressure 132/83 H 146/89 H 146/89 H Blood Pressure [Left Brachial artery] Blood Pressure [Left Radial artery] O2 Saturation 99 98 99 01/24/19 01/24/19 01/24/19 13:35 13:40 13:44 Temperature 36.4 C L 36.4 C L 36.4 C L Heart Rate 93 98 94 Heart Rate [ Monitoring electrodes] Respiratory 16 16 16 Rate Blood Pressure 140/106 H 156/113 H 158/88 H Blood Pressure [Left Brachial artery] Blood Pressure [Left Radial artery] O2 Saturation 97 97 97 01/24/19 01/24/19 01/24/19 13:47 13:56 14:00 Temperature 36.4 C L 36.4 C L 37.2 C Heart Rate 95 104 H 100 Heart Rate [ Monitoring electrodes] Respiratory 16 16 16 Rate Blood Pressure 136/94 H 143/76 H 146/87 H Blood Pressure [Left Brachial artery] Blood Pressure [Left Radial artery] O2 Saturation 96 96 97 01/24/19 01/24/19 01/24/19 14:04 14:11 14:16 Temperature 37.2 C 37.2 C 37.2 C Heart Rate 98 95 95 Heart Rate [ Monitoring electrodes] Respiratory 16 16 16 Rate Blood Pressure 133/84 H 124/65 125/79 Blood Pressure [Left Brachial artery] Blood Pressure [Left Radial artery] O2 Saturation 97 97 97 01/24/19 01/24/19 01/24/19 14:21 14:32 14:34 Temperature 37.2 C Heart Rate 97 97 100 Heart Rate [ Monitoring electrodes] Respiratory 16 15 23 Rate Blood Pressure 120/82 H 144/81 H Blood Pressure [Left Brachial artery] Blood Pressure [Left Radial artery] O2 Saturation 97 01/24/19 01/24/19 01/24/19 14:37 14:45 15:00 Temperature 37.1 C Heart Rate 99 102 H Heart Rate [ 98 Monitoring electrodes] Respiratory 14 15 17 Rate Blood Pressure 130/80 143/83 H Blood Pressure 144/81 H [Left Brachial artery] Blood Pressure [Left Radial artery] O2 Saturation 97 01/24/19 01/24/19 01/24/19 15:16 15:31 15:59 Temperature Heart Rate 99 93 104 H Heart Rate [ Monitoring electrodes] Respiratory 19 13 14 Rate Blood Pressure 137/90 H 110/60 Blood Pressure [Left Brachial artery] Blood Pressure [Left Radial artery] O2 Saturation 01/24/19 01/24/19 01/24/19 16:00 16:08 16:30 Temperature 36.7 C Heart Rate 101 H 104 H Heart Rate [ Monitoring electrodes] Respiratory 15 24 Rate Blood Pressure 132/91 H 157/97 H Blood Pressure [Left Brachial artery] Blood Pressure [Left Radial artery] O2 Saturation 01/24/19 01/24/19 01/24/19 17:00 17:01 17:15 Temperature Heart Rate 106 H 102 H 109 H Heart Rate [ Monitoring electrodes] Respiratory 24 20 20 Rate Blood Pressure 130/88 H Blood Pressure [Left Brachial artery] Blood Pressure [Left Radial artery] O2 Saturation 01/24/19 01/24/19 01/24/19 18:01 18:45 19:00 Temperature Heart Rate 110 H 109 H 104 H Heart Rate [ Monitoring electrodes] Respiratory 17 20 20 Rate Blood Pressure 124/80 Blood Pressure [Left Brachial artery] Blood Pressure [Left Radial artery] O2 Saturation 01/24/19 01/24/19 01/24/19 19:01 19:15 19:30 Temperature Heart Rate 110 H 112 H 110 H Heart Rate [ Monitoring electrodes] Respiratory 20 16 23 Rate Blood Pressure 125/77 Blood Pressure [Left Brachial artery] Blood Pressure [Left Radial artery] O2 Saturation 01/24/19 01/24/19 01/24/19 19:45 19:59 20:00 Temperature 36.8 C Heart Rate 114 H 113 H 109 H Heart Rate [ 112 H Monitoring electrodes] Respiratory 15 21 19 Rate Blood Pressure 162/93 H Blood Pressure [Left Brachial artery] Blood Pressure 162/93 H [Left Radial artery] O2 Saturation 94 01/24/19 01/24/19 01/24/19 20:01 20:15 20:30 Temperature Heart Rate 110 H 112 H 110 H Heart Rate [ Monitoring electrodes] Respiratory 19 26 H 23 Rate Blood Pressure Blood Pressure [Left Brachial artery] Blood Pressure [Left Radial artery] O2 Saturation 01/24/19 01/24/19 01/24/19 20:45 20:59 21:00 Temperature Heart Rate 109 H 113 H 111 H Heart Rate [ Monitoring electrodes] Respiratory 23 19 23 Rate Blood Pressure 146/93 H Blood Pressure [Left Brachial artery] Blood Pressure [Left Radial artery] O2 Saturation 01/24/19 01/24/19 01/24/19 21:01 21:15 21:30 Temperature Heart Rate 111 H 106 H 106 H Heart Rate [ Monitoring electrodes] Respiratory 19 19 24 Rate Blood Pressure Blood Pressure [Left Brachial artery] Blood Pressure [Left Radial artery] O2 Saturation 01/24/19 01/24/19 01/24/19 21:43 21:59 22:00 Temperature Heart Rate 109 H 106 H 104 H Heart Rate [ 123 H Monitoring electrodes] Respiratory 22 22 22 Rate Blood Pressure 149/97 H Blood Pressure [Left Brachial artery] Blood Pressure 115/66 [Left Radial artery] O2 Saturation 100 01/24/19 01/24/19 01/24/19 22:01 22:59 23:00 Temperature Heart Rate 105 H 106 H 106 H Heart Rate [ 103 H Monitoring electrodes] Respiratory 22 19 20 Rate Blood Pressure 147/87 H Blood Pressure [Left Brachial artery] Blood Pressure 147/87 H [Left Radial artery] O2 Saturation 94 01/24/19 01/25/19 01/25/19 23:01 00:00 00:01 Temperature Heart Rate 107 H 100 97 Heart Rate [ Monitoring electrodes] Respiratory 21 17 15 Rate Blood Pressure 127/83 H Blood Pressure [Left Brachial artery] Blood Pressure [Left Radial artery] O2 Saturation 01/25/19 01/25/19 01/25/19 00:59 01:00 01:01 Temperature Heart Rate 97 98 99 Heart Rate [ Monitoring electrodes] Respiratory 15 19 18 Rate Blood Pressure 117/79 Blood Pressure [Left Brachial artery] Blood Pressure [Left Radial artery] O2 Saturation 01/25/19 01/25/19 01/25/19 01:59 02:00 02:01 Temperature Heart Rate 106 H 104 H 106 H Heart Rate [ Monitoring electrodes] Respiratory 17 20 21 Rate Blood Pressure 131/86 H Blood Pressure [Left Brachial artery] Blood Pressure [Left Radial artery] O2 Saturation 01/25/19 01/25/19 01/25/19 02:59 03:00 03:01 Temperature Heart Rate 99 99 96 Heart Rate [ Monitoring electrodes] Respiratory 15 16 15 Rate Blood Pressure 116/79 Blood Pressure [Left Brachial artery] Blood Pressure [Left Radial artery] O2 Saturation 01/25/19 01/25/19 01/25/19 03:59 04:00 04:01 Temperature Heart Rate 98 96 97 Heart Rate [ Monitoring electrodes] Respiratory 16 16 16 Rate Blood Pressure 124/79 Blood Pressure [Left Brachial artery] Blood Pressure [Left Radial artery] O2 Saturation 01/25/19 01/25/19 01/25/19 04:27 04:59 05:00 Temperature Heart Rate 101 H 97 Heart Rate [ 97 Monitoring electrodes] Respiratory 16 18 17 Rate Blood Pressure 133/90 H Blood Pressure [Left Brachial artery] Blood Pressure 124/79 [Left Radial artery] O2 Saturation 95 01/25/19 01/25/19 01/25/19 05:01 06:00 06:01 Temperature Heart Rate 98 95 100 Heart Rate [ Monitoring electrodes] Respiratory 19 14 14 Rate Blood Pressure 120/68 Blood Pressure [Left Brachial artery] Blood Pressure [Left Radial artery] O2 Saturation 01/25/19 01/25/19 01/25/19 06:59 07:00 07:01 Temperature Heart Rate 103 H 104 H 102 H Heart Rate [ Monitoring electrodes] Respiratory 20 20 16 Rate Blood Pressure 129/109 H 136/83 H Blood Pressure [Left Brachial artery] Blood Pressure [Left Radial artery] O2 Saturation 01/25/19 07:02 Temperature Heart Rate 101 H Heart Rate [ Monitoring electrodes] Respiratory 17 Rate Blood Pressure Blood Pressure [Left Brachial artery] Blood Pressure [Left Radial artery] O2 Saturation Oxygen O2 Source Nasal cannula I&O (Last 24 Hrs): Intake and Output Totals x24h 01/23/19 01/24/19 01/25/19 23:59 23:59 23:59 Intake Total 1100 2606.667 1193.333 Output Total 550 800 Balance 1100 2056.667 393.333 General: Alert, Oriented x3 HEENT: Mucous membr. moist/pink Neck: Supple Neuro: Non Focal Cardiovascular: Regular rate Respiratory: No respiratory distress Abdomen: Soft Extremities: No edema - Results Results: Laboratory Results WBC 15.0 x10^3/uL (4.8-10.8) H 01/25/19 04:30 RBC 4.31 10^6/uL (4.20-5.40) 01/25/19 04:30 Hgb 11.6 g/dL (12.0-16.0) L 01/25/19 04:30 Hct 35.2 % (37.0-47.0) L 01/25/19 04:30 MCV 81.8 fL (81.0-99.0) 01/25/19 04:30 MCH 26.9 pg (27.0-31.0) L 01/25/19 04:30 MCHC 32.9 g/dL (32.0-36.0) 01/25/19 04:30 RDW 14.3 % (12.0-15.0) 01/25/19 04:30 Plt Count 277 10^3/uL (130-450) 01/25/19 04:30 MPV 7.1 fL (7.9-10.8) L 01/25/19 04:30 Neut # (Auto) 12.9 10^3/uL (1.5-6.6) H 01/25/19 04:30 Lymph # (Auto) 0.9 10^3/uL (1.5-3.5) L 01/25/19 04:30 [place] # (Auto) 1.1 10^3/uL (0.0-1.0) H 01/25/19 04:30 Eos # (Auto) 0.0 10^3/uL (0.0-0.7) 01/25/19 04:30 Baso # (Auto) 0.0 10^3/uL (0.0-0.1) 01/25/19 04:30 Absolute Nucleated RBC 0.01 x10^3/uL 01/25/19 04:30 Nucleated RBC % 0.0 /100WBC 01/25/19 04:30 Sodium 133 mmol/L (135-145) L 01/25/19 04:30 Potassium 3.4 mmol/L (3.5-5.0) L 01/25/19 04:30 Chloride 101 mmol/L (101-111) 01/25/19 04:30 Carbon Dioxide 26 mmol/L (21-32) 01/25/19 04:30 Anion Gap 6.0 (6-13) 01/25/19 04:30 BUN 10 mg/dL (6-20) 01/25/19 04:30 Creatinine 0.5 mg/dL (0.4-1.0) 01/25/19 04:30 Estimated GFR (MDRD) 126 (>89) 01/25/19 04:30 Glucose 151 mg/dL (70-100) H 01/25/19 04:30 Lactic Acid 1.9 mmol/L (0.5-2.2) 01/23/19 20:20 Calcium 7.3 mg/dL (8.5-10.3) L 01/25/19 04:30 Magnesium 1.9 mg/dL (1.7-2.8) 01/25/19 04:30 Total Bilirubin 1.0 mg/dL (0.2-1.0) 01/25/19 04:30 AST 40 IU/L (10-42) 01/25/19 04:30 ALT 41 IU/L (10-60) 01/25/19 04:30 Alkaline Phosphatase 120 IU/L (42-121) 01/25/19 04:30 Troponin I < 0.04 ng/mL (<0.49) 01/25/19 04:20 Total Protein 5.4 g/dL (6.7-8.2) L 01/25/19 04:30 Albumin 2.4 g/dL (3.2-5.5) L 01/25/19 04:30 Globulin 3.0 g/dL (2.1-4.2) 01/25/19 04:30 Albumin/Globulin Ratio 0.8 (1.0-2.2) L 01/25/19 04:30 Lipase 22 U/L (22-51) 01/23/19 20:20 TSH 0.24 uIU/mL (0.34-5.60) L 01/25/19 04:30 Urine Color DARK YELLOW 01/24/19 04:15 Urine Clarity CLEAR (CLEAR) 01/24/19 04:15 Urine pH 6.0 PH (5.0-7.5) 01/24/19 04:15 Ur Specific [place] 1.020 (1.002-1.030) 01/24/19 04:15 Urine Protein TRACE mg/dL (NEGATIVE) 01/24/19 04:15 Urine Glucose (UA) NEGATIVE mg/dL (NEGATIVE) 01/24/19 04:15 Urine Ketones NEGATIVE mg/dL (NEGATIVE) 01/24/19 04:15 Urine Occult Blood LARGE (NEGATIVE) H 01/24/19 04:15 Urine Nitrite NEGATIVE (NEGATIVE) 01/24/19 04:15 Urine Bilirubin NEGATIVE (NEGATIVE) 01/24/19 04:15 Urine Urobilinogen 0.2 (NORMAL) E.U./dL (NORMAL) 01/24/19 04:15 Ur Leukocyte Esterase TRACE (NEGATIVE) H 01/24/19 04:15 Urine RBC 6-10 /HPF (0-5) H 01/24/19 04:15 Urine WBC 6-10 /HPF (0-5) H 01/24/19 04:15 Ur Squamous Epith Cells FEW Squamous (<= Few) 01/24/19 04:15 Urine Bacteria Few /HPF (None Seen) 01/24/19 04:15 Ur Microscopic Review INDICATED 01/24/19 04:15 Urine Culture Comments INDICATED 01/24/19 04:15 Nasal Screen MRSA (PCR) NEGATIVE (NEGATIVE) 01/24/19 14:30
--- NOTE | 2019-01-25 08:32 | PROVIDER PROGRESS NOTE ---
Subjective - General Admit Date: 01/24/19 Procedure Date: 01/24/19 Post Op Days: 2 Procedure Performed: Laparoscopic cholecystectomy and umbilical herniorrhaphy - Review of Systems Wound/Incisions: positive: Healing well HEENT: positive: No symptoms Pulmonary: positive: No symptoms Cardiovascular: positive: No symptoms Gastrointestinal: positive: Nausea (Mild.), Abdominal pain (Incisional.) Musculoskeletal: positive: Shoulder pain (Secondary to operation.) Skin: positive: No symptoms Objective - Patient Data Reviewed Vital Signs: Yes Vital Signs: Vital Signs x48h Pulse Pulse Resp BP BP Pulse Ox 01/25/19 07:02 101 H 17 01/25/19 07:01 102 H 16 136/83 H 01/25/19 07:00 104 H 20 129/109 H 01/25/19 06:59 103 H 20 01/25/19 06:01 100 14 120/68 01/25/19 06:00 95 14 01/25/19 05:01 98 19 01/25/19 05:00 97 17 133/90 H 01/25/19 04:59 101 H 18 01/25/19 04:27 97 16 124/79 95 01/25/19 04:01 97 16 01/25/19 04:00 96 16 124/79 01/25/19 03:59 98 16 01/25/19 03:01 96 15 01/25/19 03:00 99 16 116/79 01/25/19 02:59 99 15 01/25/19 02:01 106 H 21 01/25/19 02:00 104 H 20 131/86 H 01/25/19 01:59 106 H 17 01/25/19 01:01 99 18 01/25/19 01:00 98 19 117/79 01/25/19 00:59 97 15 Weight: Weight 01/23/19 01/24/19 01/25/19 23:59 23:59 23:59 Weight (kg) 75.75 kg 82.962 kg Intake & Output: Intake and Output Totals x24h 01/23/19 01/24/19 01/25/19 23:59 23:59 23:59 Intake Total 1100 2606.667 1193.333 Output Total 550 800 Balance 1100 2056.667 393.333 - Lab Results Lab Results: 01/26/19 06:06 01/26/19 06:06 Other Lab Results: Lab Results x24hrs 01/25/19 01/25/19 01/25/19 Range/Units 04:30 04:30 04:30 WBC 15.0 H (4.8-10.8) x10^3/uL RBC 4.31 (4.20-5.40) 10^6/uL Hgb 11.6 L (12.0-16.0) g/dL Hct 35.2 L (37.0-47.0) % MCV 81.8 (81.0-99.0) fL MCH 26.9 L (27.0-31.0) pg MCHC 32.9 (32.0-36.0) g/dL RDW 14.3 (12.0-15.0) % Plt Count 277 (130-450) 10^3/uL MPV 7.1 L (7.9-10.8) fL Neut # (Auto) 12.9 H (1.5-6.6) 10^3/uL Lymph # (Auto) 0.9 L (1.5-3.5) 10^3/uL [place] # (Auto) 1.1 H (0.0-1.0) 10^3/uL Eos # (Auto) 0.0 (0.0-0.7) 10^3/uL Baso # (Auto) 0.0 (0.0-0.1) 10^3/uL Absolute Nucleated RBC 0.01 x10^3/uL Nucleated RBC % 0.0 /100WBC Sodium 133 L (135-145) mmol/L Potassium 3.4 L (3.5-5.0) mmol/L Chloride 101 (101-111) mmol/L Carbon Dioxide 26 (21-32) mmol/L Anion Gap 6.0 (6-13) BUN 10 (6-20) mg/dL Creatinine 0.5 (0.4-1.0) mg/dL Estimated GFR (MDRD) 126 (>89) Glucose 151 H (70-100) mg/dL Calcium 7.3 L (8.5-10.3) mg/dL Magnesium 1.9 (1.7-2.8) mg/dL Total Bilirubin 1.0 (0.2-1.0) mg/dL AST 40 (10-42) IU/L ALT 41 (10-60) IU/L Alkaline Phosphatase 120 (42-121) IU/L Troponin I (<0.49) ng/mL Total Protein 5.4 L (6.7-8.2) g/dL Albumin 2.4 L (3.2-5.5) g/dL Globulin 3.0 (2.1-4.2) g/dL Albumin/Globulin Ratio 0.8 L (1.0-2.2) TSH 0.24 L (0.34-5.60) uIU/mL Nasal Screen MRSA (PCR) (NEGATIVE) 01/25/19 01/24/19 01/24/19 Range/Units 04:20 20:47 14:30 WBC (4.8-10.8) x10^3/uL RBC (4.20-5.40) 10^6/uL Hgb (12.0-16.0) g/dL Hct (37.0-47.0) % MCV (81.0-99.0) fL MCH (27.0-31.0) pg MCHC (32.0-36.0) g/dL RDW (12.0-15.0) % Plt Count (130-450) 10^3/uL MPV (7.9-10.8) fL Neut # (Auto) (1.5-6.6) 10^3/uL Lymph # (Auto) (1.5-3.5) 10^3/uL [place] # (Auto) (0.0-1.0) 10^3/uL Eos # (Auto) (0.0-0.7) 10^3/uL Baso # (Auto) (0.0-0.1) 10^3/uL Absolute Nucleated RBC x10^3/uL Nucleated RBC % /100WBC Sodium (135-145) mmol/L Potassium (3.5-5.0) mmol/L Chloride (101-111) mmol/L Carbon Dioxide (21-32) mmol/L Anion Gap (6-13) BUN (6-20) mg/dL Creatinine (0.4-1.0) mg/dL Estimated GFR (MDRD) (>89) Glucose (70-100) mg/dL Calcium (8.5-10.3) mg/dL Magnesium (1.7-2.8) mg/dL Total Bilirubin (0.2-1.0) mg/dL AST (10-42) IU/L ALT (10-60) IU/L Alkaline Phosphatase (42-121) IU/L Troponin I < 0.04 < 0.04 (<0.49) ng/mL Total Protein (6.7-8.2) g/dL Albumin (3.2-5.5) g/dL Globulin (2.1-4.2) g/dL Albumin/Globulin Ratio (1.0-2.2) TSH (0.34-5.60) uIU/mL Nasal Screen MRSA (PCR) NEGATIVE (NEGATIVE) 01/24/19 01/24/19 01/24/19 Range/Units 14:10 14:10 14:10 WBC 15.9 H (4.8-10.8) x10^3/uL RBC 5.06 (4.20-5.40) 10^6/uL Hgb 13.3 (12.0-16.0) g/dL Hct 41.3 (37.0-47.0) % MCV 81.6 (81.0-99.0) fL MCH 26.4 L (27.0-31.0) pg MCHC 32.3 (32.0-36.0) g/dL RDW 14.3 (12.0-15.0) % Plt Count 250 (130-450) 10^3/uL MPV 7.0 L (7.9-10.8) fL Neut # (Auto) 13.9 H (1.5-6.6) 10^3/uL Lymph # (Auto) 0.7 L (1.5-3.5) 10^3/uL [place] # (Auto) 1.2 H (0.0-1.0) 10^3/uL Eos # (Auto) 0.0 (0.0-0.7) 10^3/uL Baso # (Auto) 0.1 (0.0-0.1) 10^3/uL Absolute Nucleated RBC 0.00 x10^3/uL Nucleated RBC % 0.0 /100WBC Sodium 134 L (135-145) mmol/L Potassium 3.8 (3.5-5.0) mmol/L Chloride 102 (101-111) mmol/L Carbon Dioxide 24 (21-32) mmol/L Anion Gap 8.0 (6-13) BUN 13 (6-20) mg/dL Creatinine 0.6 (0.4-1.0) mg/dL Estimated GFR (MDRD) 102 (>89) Glucose 143 H (70-100) mg/dL Calcium 7.7 L (8.5-10.3) mg/dL Magnesium (1.7-2.8) mg/dL Total Bilirubin 1.3 H (0.2-1.0) mg/dL AST 68 H (10-42) IU/L ALT 52 (10-60) IU/L Alkaline Phosphatase 163 H (42-121) IU/L Troponin I 0.04 (<0.49) ng/mL Total Protein 5.3 L (6.7-8.2) g/dL Albumin 2.5 L (3.2-5.5) g/dL Globulin 2.8 (2.1-4.2) g/dL Albumin/Globulin Ratio 0.9 L (1.0-2.2) TSH (0.34-5.60) uIU/mL Nasal Screen MRSA (PCR) (NEGATIVE) - Current Medications Current Medications: Current Medications Generic Name Dose Route Start Last Admin Trade Name Freq PRN Reason Stop Dose Admin Hydromorphone HCl 1 mg 01/24/19 22:47 01/25/19 04:45 Dilaudid Inj Syringe IVP 1 mg Q2H PRN Administration Severe Pain Dextrose/Sodium Chloride 1,000 mls @ 100 mls/hr 01/24/19 14:00 01/25/19 01:34 D5ns IV 100 mls/hr .Q10H RUDOLPH Administration Piperacillin Sod/Tazobactam 100 mls @ 200 mls/hr 01/24/19 14:00 01/25/19 02:05 Sod 3.375 gm/ Sodium Chloride IV 01/27/19 23:59 Infused Q6H RUDOLPH Infusion Sodium Chloride 10 ml 01/24/19 17:00 01/25/19 01:31 Normal Saline Flush 0.9% IVP Not Given 0100,0900,1700 RUDOLPH - Physical Exam Wound/Incisions: positive: Healing well General Appearance: positive: No acute distress Eyes Bilateral: positive: No lid inflammation, Conjunctivae nml, No scleral icterus ENT: positive: Dry mucous membranes Neck: positive: Trachea midline Respiratory: positive: Chest non-tender, No respiratory distress, Breath sounds nml Cardiovascular: positive: Tachycardia Abdomen: positive: Tenderness (Incisional.), Abnml bowel sounds (Slightly decreased.) Skin: positive: Color nml Extremities: positive: Non-tender Neurologic/Psychiatric: positive: Oriented x3, Motor nml, Sensation nml, Mood/affect nml ABX Reporting Has patient been on IV antibiotics over the past 48 hours?: Yes Impression/Plan - Problem List Problem List: D1 s/p laparoscopic cholecystectomy and umbilical herniorrhaphy for gangrenous cholecystitis 1) FEN Advance to general diet. 2) Cardiac Troponins negative. ECHO pending. 3) ID Gangrene of the gallbladder but it is out. Positive blood culture. C ontinue IV antibiotics. WBC better but not normal - may be reactive but prudence dictates continued antibiotics. 4) DVT Prophylaxis - TEDs are on but patient did not like the SCDs. Would argue against blood thinners in the first 24-48 hours due to intraoperative bleeding. Get patient walking. 5) Thyroid TSH is low suggesting hyperthyroidism.
[2019-01-25] MEDS: clonazePAM 0.5 MG TABLET PO SCH ×2 (09:56→22:31)
[2019-01-25] MEDS: METOPROLOL SUCCINATE 50 MG TABLET PO SCH (09:59)
[2019-01-25] MEDS: NS W/20 MEQ KCL 1,000 ML IV SCH ×2 (13:44→23:41)
[2019-01-25] MEDS ORDERED: NITROGLYCERIN 2% PASTE TOP SCH (20:00)
--- NOTE | 2019-01-25 20:14 | XRAY Report ---
Reason: chest pain Procedure Date: 01/25/2019 Accession Number: [id number] / [id number] Procedure: XR - Chest 1 View X-Ray CPT Code: 84287 FULL RESULT: EXAM: CHEST RADIOGRAPHY EXAM DATE: 01/25/2019 08:05 PM. CLINICAL HISTORY: Chest pain. Increasing left sided chest pain compared to yesterday. COMPARISON: CHEST 1 VIEW 01/24/2019 2:29 PM. TECHNIQUE: 1 view. FINDINGS: Lungs/Pleura: Mild right hemidiaphragm elevation. Mild diffuse interstitial prominence. No pleural effusion. Mediastinum: Tortuous thoracic aorta. Other: Old, healed right midclavicular fracture. IMPRESSION: Poor inspiration with crowding of pulmonary vessels. RADIA
[2019-01-26] MEDS: oxyCODONE 5 MG TABLET PO PRN ×5 (02:34→23:40)
[2019-01-26] MEDS: PIPERACILLIN/TAZOBACTAM 3.375 GM in SODIUM CHLORIDE 0.9% MINIBAG 100 ML IV SCH ×4 (02:35→20:07)
[2019-01-26] MEDS ORDERED: oxyCODONE 5 MG TABLET PO STA (03:36)
[2019-01-26 06:13] LABS: BASOPHILS # (AUTO) 0.1 10^3/uL (0.0-0.1); BASOPHILS % (AUTO) 0.5 %; EOSINOPHILS # (AUTO) 0.1 10^3/uL (0.0-0.7); EOSINOPHILS % (AUTO) 0.5 %; HGB - HEMOGLOBIN 10.8 g/dL (12.0-16.0); LYMPHOCYTES # (AUTO) 1.5 10^3/uL (1.5-3.5); LYMPHOCYTES % (AUTO) 13.9 %; MEAN CORPUSCULAR HGB CONC 32.8 g/dL (32.0-36.0); MEAN CORPUSCULAR VOLUME 82.3 fL (81.0-99.0); MEAN PLATELET VOLUME 6.7 fL (7.9-10.8); MONOCYTES # (AUTO) 0.9 10^3/uL (0.0-1.0); MONOCYTES % (AUTO) 8.2 %; NEUTROPHILS # (AUTO) 8.4 10^3/uL (1.5-6.6); NEUTROPHILS % (AUTO) 76.9 %; PLT - PLATELET COUNT 313 10^3/uL (130-450); RED CELL DISTRIBUTION WIDTH 14.4 % (12.0-15.0)
[2019-01-26 06:28] LABS: ALBUMIN 2.4 g/dL (3.2-5.5); ALBUMIN/GLOBULIN RATIO 0.8 (1.0-2.2); BILIRUBIN,TOTAL 1.1 mg/dL (0.2-1.0); CALCIUM 7.7 mg/dL (8.5-10.3); CREATININE 0.5 mg/dL (0.4-1.0); TOTAL PROTEIN 5.3 g/dL (6.7-8.2)
[2019-01-26] MEDS: METOPROLOL SUCCINATE 50 MG TABLET PO SCH (08:04)
[2019-01-26] MEDS: clonazePAM 0.5 MG TABLET PO SCH ×2 (08:04→20:09)
[2019-01-26] MEDS: SODIUM CHLORIDE FLUSH 0.9% 10 ML SYRINGE IVP SCH ×2 (08:06→16:13)
--- NOTE | 2019-01-26 09:12 | PROVIDER PROGRESS NOTE ---
Subjective - General Admit Date: 01/24/19 Procedure Date: 01/24/19 Post Op Days: 2 Procedure Performed: Laparoscopic cholecystectomy and umbilical herniorrhaphy - Review of Systems Wound/Incisions: positive: Healing well General: positive: No symptoms (Improving - very upset at the way she was treated by nursing last night. The patient stated that the medication that she received was less than her normal dose and when she pulled the bag out of her purse to show the nurse what her normal dose was she states the nurse took the bag away angrily. She states the nurse told her that she is not supposed to have the bag in the room.) HEENT: positive: No symptoms Pulmonary: positive: No symptoms Cardiovascular: positive: No symptoms Musculoskeletal: positive: Other (Still having some difficulty getting up out of bed. States that physical therapy is working with her to help her ambulate.) Skin: positive: No symptoms Psychiatric: positive: No symptoms Objective - Patient Data Reviewed Vital Signs: Yes Vital Signs: Vital Signs x48h Temp Pulse Pulse Resp BP Pulse Ox 01/26/19 07:23 36.4 C L 96 16 138/83 H 96 01/26/19 06:13 36.7 C 98 17 137/85 H 95 01/26/19 05:47 36.8 C 104 H 18 92 Weight: Weight 01/24/19 01/25/19 01/26/19 23:59 23:59 23:59 Weight (kg) 82.962 kg Intake & Output: Intake and Output Totals x24h 01/24/19 01/25/19 01/26/19 23:59 23:59 23:59 Intake Total 2606.667 4521.666 1668.334 Output Total 750 035 1801 Balance 2056.667 3721.666 -131.666 - Lab Results Lab Results: 01/26/19 06:06 01/26/19 06:06 Other Lab Results: Lab Results x24hrs 01/26/19 01/26/19 01/25/19 Range/Units 06:06 06:06 04:31 WBC 11.0 H (4.8-10.8) x10^3/uL RBC 4.00 L (4.20-5.40) 10^6/uL Hgb 10.8 L (12.0-16.0) g/dL Hct 32.9 L (37.0-47.0) % MCV 82.3 (81.0-99.0) fL MCH 27.0 (27.0-31.0) pg MCHC 32.8 (32.0-36.0) g/dL RDW 14.4 (12.0-15.0) % Plt Count 313 (130-450) 10^3/uL MPV 6.7 L (7.9-10.8) fL Neut # (Auto) 8.4 H (1.5-6.6) 10^3/uL Lymph # (Auto) 1.5 (1.5-3.5) 10^3/uL Mayes # (Auto) 0.9 (0.0-1.0) 10^3/uL Eos # (Auto) 0.1 (0.0-0.7) 10^3/uL Baso # (Auto) 0.1 (0.0-0.1) 10^3/uL Absolute Nucleated RBC 0.00 x10^3/uL Nucleated RBC % 0.0 /100WBC Sodium 138 (135-145) mmol/L Potassium 3.3 L (3.5-5.0) mmol/L Chloride 103 (101-111) mmol/L Carbon Dioxide 27 (21-32) mmol/L Anion Gap 8.0 (6-13) BUN 8 (6-20) mg/dL Creatinine 0.5 (0.4-1.0) mg/dL Estimated GFR (MDRD) 126 (>89) Glucose 101 H (70-100) mg/dL Calcium 7.7 L (8.5-10.3) mg/dL Total Bilirubin 1.1 H (0.2-1.0) mg/dL AST 29 (10-42) IU/L ALT 34 (10-60) IU/L Alkaline Phosphatase 122 H (42-121) IU/L Total Protein 5.3 L (6.7-8.2) g/dL Albumin 2.4 L (3.2-5.5) g/dL Globulin 2.9 (2.1-4.2) g/dL Albumin/Globulin Ratio 0.8 L (1.0-2.2) Free T4 (0.58-1.64) ng/dL Free T3 pg/mL 2.03 L (2.5-3.9) pg/mL 01/25/19 Range/Units 04:31 WBC (4.8-10.8) x10^3/uL RBC (4.20-5.40) 10^6/uL Hgb (12.0-16.0) g/dL Hct (37.0-47.0) % MCV (81.0-99.0) fL MCH (27.0-31.0) pg MCHC (32.0-36.0) g/dL RDW (12.0-15.0) % Plt Count (130-450) 10^3/uL MPV (7.9-10.8) fL Neut # (Auto) (1.5-6.6) 10^3/uL Lymph # (Auto) (1.5-3.5) 10^3/uL Mayes # (Auto) (0.0-1.0) 10^3/uL Eos # (Auto) (0.0-0.7) 10^3/uL Baso # (Auto) (0.0-0.1) 10^3/uL Absolute Nucleated RBC x10^3/uL Nucleated RBC % /100WBC Sodium (135-145) mmol/L Potassium (3.5-5.0) mmol/L Chloride (101-111) mmol/L Carbon Dioxide (21-32) mmol/L Anion Gap (6-13) BUN (6-20) mg/dL Creatinine (0.4-1.0) mg/dL Estimated GFR (MDRD) (>89) Glucose (70-100) mg/dL Calcium (8.5-10.3) mg/dL Total Bilirubin (0.2-1.0) mg/dL AST (10-42) IU/L ALT (10-60) IU/L Alkaline Phosphatase (42-121) IU/L Total Protein (6.7-8.2) g/dL Albumin (3.2-5.5) g/dL Globulin (2.1-4.2) g/dL Albumin/Globulin Ratio (1.0-2.2) Free T4 1.17 (0.58-1.64) ng/dL Free T3 pg/mL (2.5-3.9) pg/mL - Current Medications Current Medications: Current Medications Generic Name Dose Route Start Last Admin Trade Name Freq PRN Reason Stop Dose Admin Clonazepam 1 mg 01/25/19 09:00 01/26/19 08:04 Klonopin PO Not Given BID RUDOLPH Piperacillin Sod/Tazobactam 100 mls @ 200 mls/hr 01/24/19 14:00 01/26/19 08:00 Sod 3.375 gm/ Sodium Chloride IV 01/27/19 23:59 200 mls/hr Q6H RUDOLPH Administration Potassium Chloride/Sodium Chloride 1,000 mls @ 100 mls/hr 01/25/19 13:00 01/26/19 03:46 Normal Saline 0.9% W/20 Meq Kcl IV 100 mls/hr .Q10H RUDOLPH Infusion Metoprolol Succinate 50 mg 01/25/19 09:00 01/26/19 08:04 Toprol Xl PO 50 mg DAILY RUDOLPH Administration Sodium Chloride 10 ml 01/24/19 17:00 01/26/19 08:06 Normal Saline Flush 0.9% IVP Not Given 0100,0900,1700 RUDOLPH Sodium Chloride 10 ml 01/24/19 13:18 01/25/19 18:57 Normal Saline Flush 0.9% IVP 10 ml PRN PRN Administration NEEDED PER PROVIDER ORDERS - Physical Exam Wound/Incisions: positive: Healing well General Appearance: positive: No acute distress Eyes Bilateral: positive: No lid inflammation, Conjunctivae nml, No scleral icterus ENT: positive: No signs of dehydration Neck: positive: Trachea midline Respiratory: positive: Chest non-tender, No respiratory distress, Breath sounds nml Cardiovascular: positive: Regular rate & rhythm Abdomen: positive: Tenderness (Incisional.) Skin: positive: Color nml Neurologic/Psychiatric: positive: Oriented x3, Motor nml, Sensation nml, Mood/affect nml, Other (Again, upset that the way she was treated last night.) ABX Reporting Has patient been on IV antibiotics over the past 48 hours?: Yes Impression/Plan - Problem List Problem List: D2 s/p laparoscopic cholecystectomy and umbilical herniorrhaphy for gangrenous cholecystitis 1) FEN General diet. 2) Cardiac The ECHO was normal. Patient had another episode of chest pain radiating down LEFT arm last night that I was called for. Workup again suggests that it was not cardiac in origin. 3) ID Gangrene of the gallbladder but it is out. Positive blood culture but this may be a contaminant. Continue IV antibiotics. WBC again lower but not normal. Switch to oral antibiotics. 4) DVT Prophylaxis - TEDs are on but patient did not like the SCDs. Would argue against blood thinners in the first 24-48 hours due to intraoperative bleeding. Get patient walking. 5) Thyroid TSH is low suggesting hyperthyroidism. 6) Pain Switch to oral agents.
[2019-01-26] MEDS: POTASSIUM CHLORIDE 20 MEQ TABLET PO SCH (11:01)
[2019-01-26] MEDS: NS W/20 MEQ KCL 1,000 ML IV SCH (13:53)
--- NOTE | 2019-01-26 14:07 | PROVIDER PROGRESS NOTE ---
Assessment/Plan - Problem List (1) Acute cholecystitis Assessment/Plan: Clinically improving, POD #2. Diet advanced to regular by surgeon. Galbladder was gangrenous but was removed. Empiric antibiotics planned for 4-7 days or as surgeon dictates. PT to start with her today and poss DCh tomorrow. (2) Gram-positive bacteremia Assessment/Plan: Staph epidermitis was identified. This may have been a contaminent, but she should finish an empiric course of treatment to cover G negs, G pos and anaerobes. Today is Day#3 of Zosyn. Will transition to oral antibiotic tomorrow for at least 1-2 more days, for a 4- 7 day course. Per UpToDate: Reasonable oral regimens include levofloxacin (750 mg once daily) or ciprofloxacin (500 mg twice daily), each with metronidazole (500 mg three times daily), or monotherapy with amoxicillin-clavulanate (875/125 mg two to three times daily), depending on susceptibility testing. (3) Hyperthyroidism determined by thyroid function test Assessment/Plan: B-leo restarted and she will need outpt management. (4) UTI (urinary tract infection) Assessment/Plan: Urine sample grew possible skin contaminants. (5) Hypokalemia Assessment/Plan: Replace and follow BMP daily. (6) History of back pain Assessment/Plan: She was asking for more pain meds overnight. (7) Hx of essential hypertension Assessment/Plan: Stable. (8) Tachycardia Assessment/Plan: Resolved (9) Ectopic atrial rhythm Assessment/Plan: Resolved (10) Hyponatremia Assessment/Plan: Resolved. - Current Meds Current Meds: Current Medications Generic Name Dose Route Start Last Admin Trade Name Freq PRN Reason Stop Dose Admin Clonazepam 1 mg 01/25/19 09:00 01/26/19 08:04 Klonopin PO Not Given BID RUDOLPH Piperacillin Sod/Tazobactam 100 mls @ 200 mls/hr 01/24/19 14:00 01/26/19 13:54 Sod 3.375 gm/ Sodium Chloride IV 01/27/19 23:59 200 mls/hr Q6H RUDOLPH Administration Potassium Chloride/Sodium Chloride 1,000 mls @ 70 mls/hr 01/26/19 09:19 01/26/19 13:53 Normal Saline 0.9% W/20 Meq Kcl IV 70 mls/hr .[id number] RUDOLPH Administration Metoprolol Succinate 50 mg 01/25/19 09:00 01/26/19 08:04 Toprol Xl PO 50 mg DAILY RUDOLPH Administration Oxycodone HCl 10 mg 01/26/19 03:35 01/26/19 11:08 Roxicodone PO 10 mg Q6HR PRN Administration PAIN Potassium Chloride 20 meq 01/26/19 10:00 01/26/19 11:01 K-Dur PO 20 meq DAILYWM RUDOLPH Administration Sodium Chloride 10 ml 01/24/19 17:00 01/26/19 08:06 Normal Saline Flush 0.9% IVP Not Given 0100,0900,1700 RUDOLPH Sodium Chloride 10 ml 01/24/19 13:18 01/25/19 18:57 Normal Saline Flush 0.9% IVP 10 ml PRN PRN Administration NEEDED PER PROVIDER ORDERS - Lab Result Fish Bone Diagrams: 01/26/19 06:06 01/26/19 06:06 Subjective - Subjective Patient Reports: No Complaints Objective Vital Signs: Vital Signs - 24 hr 01/25/19 01/25/19 01/25/19 19:36 19:44 19:50 Temperature 36.7 C Heart Rate Heart Rate [ 104 H 104 H Monitoring electrodes] Respiratory 20 18 Rate Blood Pressure 180/108 H [Left Brachial artery] Blood Pressure 189/100 H 166/103 H [Left Radial artery] O2 Saturation 93 93 01/25/19 01/25/19 01/26/19 20:20 20:41 00:06 Temperature 37.2 C 36.8 C Heart Rate Heart Rate [ 108 H 107 H 104 H Monitoring electrodes] Respiratory 18 17 18 Rate Blood Pressure [Left Brachial artery] Blood Pressure 157/97 H 149/75 H 135/74 H [Left Radial artery] O2 Saturation 96 96 92 01/26/19 01/26/19 01/26/19 05:47 06:13 07:23 Temperature 36.8 C 36.7 C 36.4 C L Heart Rate 104 H Heart Rate [ 98 96 Monitoring electrodes] Respiratory 18 17 16 Rate Blood Pressure [Left Brachial artery] Blood Pressure 137/85 H 138/83 H [Left Radial artery] O2 Saturation 92 95 96 01/26/19 11:38 Temperature 36.8 C Heart Rate Heart Rate [ 98 Monitoring electrodes] Respiratory 16 Rate Blood Pressure [Left Brachial artery] Blood Pressure 146/81 H [Left Radial artery] O2 Saturation 94 Oxygen O2 Source Room air I&O (Last 24 Hrs): Intake and Output Totals x24h 01/24/19 01/25/19 01/26/19 23:59 23:59 23:59 Intake Total 2606.667 4521.666 2018.334 Output Total 336 118 6318 Balance 2056.667 3721.666 -231.666 General: Alert, Oriented x3 HEENT: Mucous membr. moist/pink Neck: Supple Cardiovascular: Regular rate Respiratory: No respiratory distress Abdomen: Soft Extremities: No edema - Results Results: Laboratory Results WBC 11.0 x10^3/uL (4.8-10.8) H 01/26/19 06:06 RBC 4.00 10^6/uL (4.20-5.40) L 01/26/19 06:06 Hgb 10.8 g/dL (12.0-16.0) L 01/26/19 06:06 Hct 32.9 % (37.0-47.0) L 01/26/19 06:06 MCV 82.3 fL (81.0-99.0) 01/26/19 06:06 MCH 27.0 pg (27.0-31.0) 01/26/19 06:06 MCHC 32.8 g/dL (32.0-36.0) 01/26/19 06:06 RDW 14.4 % (12.0-15.0) 01/26/19 06:06 Plt Count 313 10^3/uL (130-450) 01/26/19 06:06 MPV 6.7 fL (7.9-10.8) L 01/26/19 06:06 Neut # (Auto) 8.4 10^3/uL (1.5-6.6) H 01/26/19 06:06 Lymph # (Auto) 1.5 10^3/uL (1.5-3.5) 01/26/19 06:06 Bell # (Auto) 0.9 10^3/uL (0.0-1.0) 01/26/19 06:06 Eos # (Auto) 0.1 10^3/uL (0.0-0.7) 01/26/19 06:06 Baso # (Auto) 0.1 10^3/uL (0.0-0.1) 01/26/19 06:06 Absolute Nucleated RBC 0.00 x10^3/uL 01/26/19 06:06 Nucleated RBC % 0.0 /100WBC 01/26/19 06:06 Sodium 138 mmol/L (135-145) 01/26/19 06:06 Potassium 3.3 mmol/L (3.5-5.0) L 01/26/19 06:06 Chloride 103 mmol/L (101-111) 01/26/19 06:06 Carbon Dioxide 27 mmol/L (21-32) 01/26/19 06:06 Anion Gap 8.0 (6-13) 01/26/19 06:06 BUN 8 mg/dL (6-20) 01/26/19 06:06 Creatinine 0.5 mg/dL (0.4-1.0) 01/26/19 06:06 Estimated GFR (MDRD) 126 (>89) 01/26/19 06:06 Glucose 101 mg/dL (70-100) H 01/26/19 06:06 Lactic Acid 1.9 mmol/L (0.5-2.2) 01/23/19 20:20 Calcium 7.7 mg/dL (8.5-10.3) L 01/26/19 06:06 Magnesium 1.9 mg/dL (1.7-2.8) 01/25/19 04:30 Total Bilirubin 1.1 mg/dL (0.2-1.0) H 01/26/19 06:06 AST 29 IU/L (10-42) 01/26/19 06:06 ALT 34 IU/L (10-60) 01/26/19 06:06 Alkaline Phosphatase 122 IU/L (42-121) H 01/26/19 06:06 Troponin I < 0.04 ng/mL (<0.49) 01/25/19 04:20 Total Protein 5.3 g/dL (6.7-8.2) L 01/26/19 06:06 Albumin 2.4 g/dL (3.2-5.5) L 01/26/19 06:06 Globulin 2.9 g/dL (2.1-4.2) 01/26/19 06:06 Albumin/Globulin Ratio 0.8 (1.0-2.2) L 01/26/19 06:06 Lipase 22 U/L (22-51) 01/23/19 20:20 TSH 0.24 uIU/mL (0.34-5.60) L 01/25/19 04:30 Free T4 1.17 ng/dL (0.58-1.64) 01/25/19 04:31 Free T3 pg/mL 2.03 pg/mL (2.5-3.9) L 01/25/19 04:31 Urine Color DARK YELLOW 01/24/19 04:15 Urine Clarity CLEAR (CLEAR) 01/24/19 04:15 Urine pH 6.0 PH (5.0-7.5) 01/24/19 04:15 Ur Specific [place] 1.020 (1.002-1.030) 01/24/19 04:15 Urine Protein TRACE mg/dL (NEGATIVE) 01/24/19 04:15 Urine Glucose (UA) NEGATIVE mg/dL (NEGATIVE) 01/24/19 04:15 Urine Ketones NEGATIVE mg/dL (NEGATIVE) 01/24/19 04:15 Urine Occult Blood LARGE (NEGATIVE) H 01/24/19 04:15 Urine Nitrite NEGATIVE (NEGATIVE) 01/24/19 04:15 Urine Bilirubin NEGATIVE (NEGATIVE) 01/24/19 04:15 Urine Urobilinogen 0.2 (NORMAL) E.U./dL (NORMAL) 01/24/19 04:15 Ur Leukocyte Esterase TRACE (NEGATIVE) H 01/24/19 04:15 Urine RBC 6-10 /HPF (0-5) H 01/24/19 04:15 Urine WBC 6-10 /HPF (0-5) H 01/24/19 04:15 Ur Squamous Epith Cells FEW Squamous (<= Few) 01/24/19 04:15 Urine Bacteria Few /HPF (None Seen) 01/24/19 04:15 Ur Microscopic Review INDICATED 01/24/19 04:15 Urine Culture Comments INDICATED 01/24/19 04:15 Nasal Screen MRSA (PCR) NEGATIVE (NEGATIVE) 01/24/19 14:30
[2019-01-27] MEDS: SODIUM CHLORIDE FLUSH 0.9% 10 ML SYRINGE IVP SCH ×2 (01:35→08:11)
[2019-01-27] MEDS: PIPERACILLIN/TAZOBACTAM 3.375 GM in SODIUM CHLORIDE 0.9% MINIBAG 100 ML IV SCH ×2 (01:56→08:10)
[2019-01-27] MEDS: oxyCODONE 5 MG TABLET PO PRN (05:32)
[2019-01-27] MEDS: NS W/20 MEQ KCL 1,000 ML IV SCH (05:32)
[2019-01-27 06:19] LABS: BASOPHILS % (AUTO) 0.5 %; EOSINOPHILS # (AUTO) 0.3 10^3/uL (0.0-0.7); EOSINOPHILS % (AUTO) 3.6 %; HGB - HEMOGLOBIN 10.7 g/dL (12.0-16.0); LYMPHOCYTES # (AUTO) 1.9 10^3/uL (1.5-3.5); LYMPHOCYTES % (AUTO) 22.8 %; MEAN CORPUSCULAR HEMOGLOBIN 27.1 pg (27.0-31.0); MEAN CORPUSCULAR HGB CONC 32.8 g/dL (32.0-36.0); MEAN CORPUSCULAR VOLUME 82.6 fL (81.0-99.0); MEAN PLATELET VOLUME 6.4 fL (7.9-10.8); MONOCYTES # (AUTO) 0.7 10^3/uL (0.0-1.0); MONOCYTES % (AUTO) 8.1 %; NEUTROPHILS # (AUTO) 5.3 10^3/uL (1.5-6.6); PLT - PLATELET COUNT 313 10^3/uL (130-450); RED BLOOD COUNT 3.93 10^6/uL (4.20-5.40); RED CELL DISTRIBUTION WIDTH 14.4 % (12.0-15.0); WHITE BLOOD COUNT 8.1 x10^3/uL (4.8-10.8)
[2019-01-27 06:32] LABS: ALBUMIN 2.4 g/dL (3.2-5.5); ALBUMIN/GLOBULIN RATIO 0.9 (1.0-2.2); BILIRUBIN,TOTAL 1.1 mg/dL (0.2-1.0); CALCIUM 7.5 mg/dL (8.5-10.3); CREATININE 0.4 mg/dL (0.4-1.0)
[2019-01-27] MEDS: METOPROLOL SUCCINATE 50 MG TABLET PO SCH (08:10)
[2019-01-27] MEDS: clonazePAM 0.5 MG TABLET PO SCH (08:10)
[2019-01-27] MEDS: POTASSIUM CHLORIDE 20 MEQ TABLET PO SCH (08:10)
[2019-01-27 08:21] VITALS: BP 146/89
--- NOTE | 2019-01-27 10:53 | DISCHARGE SUMMARY ---
"Discharge Summary Admit Date: 01/23/19 Discharge Date: 01/27/19 Discharging Provider: Ezeuqiel Pederson MD Primary Care Provider: Duyen Vasquez Code Status: Attempt Resuscitation Condition at Discharge: Good Discharge Disposition: 01 Home, Self Care - DIAGNOSES Admission Diagnoses: Acute cholecystitis Discharge Diagnoses with Status of Each Condition: Gone. - HPI History of Present Illness: 58 year old female with excrutiating RUQ pain described as postprandial and lasting for days. Nausea no vomiting. US and labs c/w acute cholecystitis. - CONSULTS | PROCEDURES Consultations: Hospitalist for perioperative cardiac changes Procedures: Laparoscopic cholecystectomy and umbilical herniorroraphy (Dr. Pederson) on - HOSPITAL COURSE Hospital Course: Uncomplicated but required IV antibiotics for operative findings and positive blood culture as well as cardiac workup for perioperative changes - ALLERGIES Allergies/Adverse Reactions: Allergies Allergy/AdvReac Type Severity Reaction Status Date / Time acetaminophen [From Tylenol] Allergy Rash Verified 01/23/19 19:26 meperidine [From Demerol] Allergy Rash Verified 01/23/19 19:25 - MEDICATIONS Home Medications: Ambulatory Orders Medication Instructions Recorded Confirmed Atorvastatin [Lipitor] 1 tab PO DAILY 01/23/19 01/23/19 Metoprolol Succinate 50 mg PO DAILY 01/23/19 01/23/19 Oxycodone HCl/Acetaminophen 1 each PO BID 01/23/19 01/23/19 [Oxycodone-Acetaminophen 10-325] clonazePAM [Clonazepam] 1 mg PO BID 01/23/19 01/23/19 Home Medications Other | Comments: Oxycodone for pain. - PHYSICAL EXAM AT DISCHARGE General Appearance: positive: No acute distress Eyes Bilateral: positive: No lid inflammation, Conjunctivae nml, No scleral icterus ENT: positive: No signs of dehydration Neck: positive: Trachea midline Respiratory: positive: Chest non-tender, No respiratory distress, Breath sounds nml Cardiovascular: positive: Regular rate & rhythm Abdomen: positive: Nml bowel sounds, Tenderness (Minimal incisional) Skin: positive: Color nml Extremities: positive: Non-tender Neurologic/Psychiatric: positive: Oriented x3, Motor nml, Sensation nml, Mood/affect nml - LABS Result Diagrams: 01/27/19 05:05 01/27/19 05:05 - SEPSIS Current Stage of Sepsis: Ruled out Possible source of Sepsis: GI tract/intra-abdominal Sepsis Associated Organ Dysfunction: Gallbladder Sepsis Criteria: Recorded Heart Rate greater than 90 bpm, WBC count greater than 12,000 or less than 4000 - QUALITY (Female Hip Fx Only) Was patient sent home on osteoporosis medication?: No - FOLLOW UP Follow Up: Bg Vasquez - TIME SPENT Time Spent in Discharge (Minutes): 45"
--- NOTE | 2019-01-27 11:00 | Discharge Plan ---
Discharge Plan Disposition: 01 Home, Self Care Condition: Good Prescriptions: oxyCODONE [Roxicodone] 10 mg PO Q6HR PRN #20 tablet PRN Reason: Pain Diet: Regular Activity Restrictions: No lifitng >15 pounds Shower Restrictions: No Driving Restrictions: Yes Assistance Devices: Cane Weight Bearing: Full Weight No Smoking: If you smoke, Please STOP! Call for help. Follow-up with: Ezequiel Pederson MD [Provider Admit Priv/Credential] - Duyen Vasquez PA [Primary Care Provider] -
== END 2019-01-27 11:30 | disposition home or self-care (01) | DRG 418 ==
LOC: ED 19:14 → SDS 22:25 → ICU 01-24 13:18 → MS2 01-25 16:02
PROVIDERS: ADMIT Surgery; ATTEND Internal Medicine
PROC: 0WQF4ZZ Repair Abdominal Wall, Percutaneous Endoscopic Approach (ICD-10-PCS; 2019-01-24)
PROC: 0FT44ZZ Resection of Gallbladder, Percutaneous Endoscopic Approach (ICD-10-PCS; principal; 2019-01-24 11:15)
DX: K81.0 Acute cholecystitis (principal); N39.0 Urinary tract infection, site not specified; R78.81 Bacteremia; E87.1 Hypo-osmolality and hyponatremia; K82.A1 Gangrene of gallbladder in cholecystitis; K42.9 Umbilical hernia without obstruction or gangrene; K90.0 Celiac disease; E86.0 Dehydration; D72.829 Elevated white blood cell count, unspecified; I10 Essential (primary) hypertension; E78.00 Pure hypercholesterolemia, unspecified; G89.29 Other chronic pain; M54.9 Dorsalgia, unspecified; R00.0 Tachycardia, unspecified; E05.90 Thyrotoxicosis, unspecified without thyrotoxic crisis or storm; E87.6 Hypokalemia; I49.1 Atrial premature depolarization
CPT/HCPCS: 36415; 71045; 76705; 80053; 81001; 83605; 83690; 83735; 84439; 84443; 84481; 84484; 85025; 87040; 87077; 87086; 87150; 87181; 93005; 93306; 96361; 96365; 96375; 96376; 97161; 99283; 99284; A9270; J1170; J7120; 81003; 99285

== ENCOUNTER 2020-07-28 20:23 | Emergency (ER) | payer OTHER, MEDICARE ==
[2020-07-28 20:52] LABS: BASOPHILS # (AUTO) 0.1 10^3/uL (0.0-0.1); BASOPHILS % (AUTO) 0.7 %; EOSINOPHILS # (AUTO) 0.3 10^3/uL (0.0-0.7); EOSINOPHILS % (AUTO) 1.8 %; HGB - HEMOGLOBIN 17.5 g/dL (12.0-16.0); LYMPHOCYTES # (AUTO) 4.6 10^3/uL (1.5-3.5); LYMPHOCYTES % (AUTO) 31.4 %; MEAN CORPUSCULAR HEMOGLOBIN 27.9 pg (27.0-31.0); MEAN CORPUSCULAR VOLUME 84.6 fL (81.0-99.0); MEAN PLATELET VOLUME 8.9 fL (7.9-10.8); MONOCYTES # (AUTO) 0.9 10^3/uL (0.0-1.0); MONOCYTES % (AUTO) 6.4 %; NEUTROPHILS # (AUTO) 8.7 10^3/uL (1.5-6.6); NEUTROPHILS % (AUTO) 59.3 %; PLT - PLATELET COUNT 387 10^3/uL (130-450); RED BLOOD COUNT 6.28 10^6/uL (4.20-5.40); RED CELL DISTRIBUTION WIDTH 14.2 % (12.0-15.0); WHITE BLOOD COUNT 14.6 x10^3/uL (4.8-10.8)
[2020-07-28 21:06] LABS: ALBUMIN 4.3 g/dL (3.2-5.5); ALBUMIN/GLOBULIN RATIO 1.4 (1.0-2.2); BILIRUBIN,TOTAL 0.6 mg/dL (0.2-1.0); CALCIUM 9.8 mg/dL (8.5-10.3); CREATININE 0.8 mg/dL (0.4-1.0); TOTAL PROTEIN 7.3 g/dL (6.7-8.2)
--- NOTE | 2020-07-28 21:16 | XRAY Report ---
PROCEDURE: Chest 1 View X-Ray INDICATIONS: Chest pain TECHNIQUE: One view of the chest was acquired. COMPARISON: Single view the chest dated 01/25/2019 FINDINGS: Surgical changes and devices: None. Lungs and pleura: No pleural effusions or pneumothorax. Lungs are clear. Mediastinum: Mediastinal contours appear normal. Heart size is normal. Bones and chest wall: No suspicious bony lesions. Overlying soft tissues appear unremarkable. IMPRESSION: No acute cardiopulmonary findings. Reviewed by: Sophia Grace MD on 07/28/2020 9:15 PM PDT Approved by: Sophia Grace MD on 07/28/2020 9:15 PM PDT Station ID: [id number]
--- NOTE | 2020-07-28 21:16 | ED Physician Documentation ---
PD HPI CHEST PAIN - Stated complaint Stated Complaint: CP,SOA LT SIDE - Chief complaint Chief Complaint: Cardiac - History obtained from History obtained from: Patient - History of Present Illness Timing - onset: How many weeks ago (1) Timing - onset during: Rest Timing - duration: Weeks (1) Timing - details: Gradual onset, Still present Quality: Sharp, Pain Location: Left chest Improved by: Rest Worsened by: Inspiration, Movement, Palpation, Position Associated symptoms: Shortness of air, Cough Similar symptoms before: Has not had sx before Recently seen: Not recently seen Review of Systems Constitutional: denies: Fever, Chills Eyes: denies: Decreased vision Ears: denies: Ear pain Nose: denies: Rhinorrhea / runny nose, Congestion Throat: denies: Dental pain / toothache, Sore throat Cardiac: reports: Chest pain / pressure. denies: Palpitations, Pedal edema, Calf pain Respiratory: reports: Dyspnea, Cough GI: reports: Constipation. denies: Abdominal Pain, Nausea, Vomiting : denies: Dysuria, Frequency PD PAST MEDICAL HISTORY - Past Medical History Past Medical History: Yes Cardiovascular: Hypertension, High cholesterol Respiratory: None Neuro: Head injury, Migraines GI: Cholelithiasis : Kidney stones Musculoskeletal: Osteoarthritis, Fibromyalgia, Chronic back pain - Past Surgical History Past Surgical History: No - Present Medications Home Medications: Ambulatory Orders Medication Instructions Recorded Confirmed Atorvastatin [Lipitor] 1 tab PO DAILY 01/23/19 01/23/19 Metoprolol Succinate 50 mg PO DAILY 01/23/19 01/23/19 Oxycodone HCl/Acetaminophen 1 each PO BID 01/23/19 01/23/19 [Oxycodone-Acetaminophen 10-325] clonazePAM [Clonazepam] 1 mg PO BID 01/23/19 01/23/19 oxyCODONE [Roxicodone] 10 mg PO Q6HR PRN #20 tablet 01/27/19 Azithromycin [Zithromax] 250 mg PO DAILY #6 tablet 07/28/20 - Allergies Allergies/Adverse Reactions: Allergies Allergy/AdvReac Type Severity Reaction Status Date / Time acetaminophen [From Tylenol] Allergy Rash Verified 07/28/20 20:28 meperidine [From Demerol] Allergy Rash Verified 07/28/20 20:28 - Social History Does the pt smoke?: No Smoking Status: Never smoker Does the pt drink ETOH?: No Does the pt have substance abuse?: No - Immunizations Immunizations are current?: Yes - POLST Patient has POLST: No PD ED PE NORMAL - Vitals Vital signs reviewed: Yes (hypertensive mild ) - General General: Alert and oriented X 3, No acute distress, Well developed/nourished - HEENT HEENT: Atraumatic, PERRL, EOMI, Other (left TM obscured by cerumen) - Neck Neck: Supple, no meningeal sign, No bony TTP - Cardiac Cardiac: RRR, No murmur - Respiratory Respiratory: No respiratory distress, Clear bilaterally, Other (chest wall tenderness reproduces the pain the patient is experiencing. ) - Abdomen Abdomen: Soft, Non tender - Back Back: No CVA TTP, No spinal TTP - Derm Derm: Normal color, Warm and dry, No rash - Extremities Extremities: No deformity, No edema - Neuro Neuro: Alert and oriented X 3, standpipe tender 2-12 intact, No motor deficit, No sensory deficit, Normal speech Eye Opening: Spontaneous Motor: Obeys Commands Verbal: Oriented GCS Score: 15 - Psych Psych: Normal mood, Normal affect Results - Vitals Vitals: Vital Signs - 24 hr 07/28/20 07/28/20 20:28 20:45 Temperature 36.5 C 36.5 C Heart Rate 90 90 Respiratory 16 18 Rate Blood Pressure 131/85 H 121/96 H O2 Saturation 94 100 Oxygen O2 Source Room air - EKG (time done) 2026 Rate: Rate (enter#) (90) Compare to prior EKG: Changed from prior EKG (SPT 01-24-[address] changes present are now resolved. ) Computer interpretation: Agree with computer - Labs Labs: Laboratory Tests 07/28/20 07/28/20 07/28/20 20:49 20:49 20:49 WBC 14.6 H RBC 6.28 H Hgb 17.5 H Hct 53.1 H MCV 84.6 MCH 27.9 MCHC 33.0 RDW 14.2 Plt Count 387 MPV 8.9 Neut # (Auto) 8.7 H Lymph # (Auto) 4.6 H Placer # (Auto) 0.9 Eos # (Auto) 0.3 Baso # (Auto) 0.1 Absolute Nucleated RBC 0.00 Nucleated RBC % 0.0 Sodium 136 Potassium 4.0 Chloride 99 L Carbon Dioxide 25 Anion Gap 12.0 BUN 25 H Creatinine 0.8 Estimated GFR (MDRD) 73 L Glucose 113 H Calcium 9.8 Total Bilirubin 0.6 AST 26 ALT 30 Alkaline Phosphatase 109 Troponin I High Sens 5.4 Total Protein 7.3 Albumin 4.3 Globulin 3.0 Albumin/Globulin Ratio 1.4 Lipase 35 - Rads (name of study) chest Radiology: Prelim report reviewed (Impression: No acute cardiopulmonary findings.), EMP read indepedently, See rad report PD MEDICAL DECISION MAKING - ED course Complexity details: reviewed old records, reviewed results, re-evaluated patient, considered differential, d/w patient, d/w family ED course: 60-year-old female with a history of hypertension has developed pain in the left side of her chest that is reproducible by palpation of the chest wall. Her diagnostics are otherwise unremarkable there is no infiltrate to the chest x- ray, electrocardiogram and cardiac enzymes are normal. She does have leukocytosis as an isolated finding. She is not producing sputum she does have a cough she is a smoker. Departure - Departure Disposition: 01 Home, Self Care Clinical Impression: Pleuritic chest pain, Bronchitis Condition: Stable Instructions: ED Bronchitis Asthmatic, ED Chest Pain Pleurisy Follow-Up: Duyen Vasquez PA [Primary Care Provider] - Prescriptions: Azithromycin [Zithromax] 250 mg PO DAILY #6 tablet
[2020-07-28] MEDS ORDERED: KETOROLAC 30 MG/ML VIAL IVP STA (21:31)
[2020-07-28] MEDS ORDERED: DEXAMETHASONE 10 MG/ML VIAL IVP STA (21:31)
[2020-07-28 22:41] VITALS: BP 118/92
== END 2020-07-28 22:41 | disposition home or self-care (01) ==
LOC: ED 20:23
DX: J40 Bronchitis, not specified as acute or chronic (principal); R07.81 Pleurodynia; H61.22 Impacted cerumen, left ear; I10 Essential (primary) hypertension; F17.200 Nicotine dependence, unspecified, uncomplicated
CPT/HCPCS: 36415; 71045; 80053; 83690; 84484; 85025; 93005; 96374; 99284